=== PATIENT | female | born 1940 | race Caucasian/White ===

== ENCOUNTER 2021-08-25 07:50 | Inpatient (IN) | payer MEDICARE, OTHER ==
--- NOTE | 2021-08-25 09:12 | EDM.PDOC ---
ED HPI GENERAL MEDICAL PROBLEM - General Chief Complaint: Back Pain or Injury Stated Complaint: [facility] Time Seen by Provider: 08/25/21 08:00 Source of Information: Reports: Patient, EMS History Limitations: Reports: Physical Impairment (Patient does have some dementia and difficulty following a train of thought, poor memory) - History of Present Illness INITIAL COMMENTS - FREE TEXT/NARRATIVE: 80-year-old female lives in a assisted living facility has fallen twice in the last few days. She has a bruise on her left lateral hip area from her initial fall, she seemed to be improving but she fell again this morning and has significant lower back pain. This was not present before the fall. No shortness of breath, no head or neck injury, no nausea or vomiting. She had significant discomfort with trying to get up so they called the ambulance, she also complained of pain with transfer onto the gurney. Pain is still present. It is tolerable when she is lying still. Onset: Sudden Duration: Hour(s): (She fell about an hour ago) Location: Reports: Back (Pain was located at the lower thoracic and upper lumbar area of the back) Associated Symptoms: Reports: No Other Symptoms Lower Back Pain Score (Numeric/FACES): 4 - Related Data Allergies Allergy/AdvReac Type Severity Reaction Status Date / Time No Known Allergies Allergy Verified 08/25/21 07:56 Home Meds: Home Meds Multivitamin 1 each PO 08/25/21 [History] Triamterene/Hydrochlorothiazid [Triamterene-HCTZ 37.5-25 MG] 1 each PO 08/25/21 [History] Venlafaxine HCl [Venlafaxine ER] 150 mg PO 08/25/21 [History] Zinc 50 mg PO 08/25/21 [History] buPROPion HCL [Bupropion HCl ER] 300 mg PO 08/25/21 [History] traZODone 50 mg PO BEDTIME 08/25/21 [History] Social & Family History - Tobacco Use Tobacco Use Status *Q: Never Tobacco User ED ROS GENERAL - Review of Systems Review Of Systems: See Below Constitutional: Denies: Fever, Chills Respiratory: Denies: Shortness of Breath Cardiovascular: Denies: Chest Pain GI/Abdominal: Reports: No Symptoms : Reports: No Symptoms Skin: Reports: Bruising (Some bruising present on the left lateral hip from her previous fall) Neurological: Reports: Confusion (Chronic mild confusion, dementia). Denies: Dizziness, Headache Psychiatric: Reports: No Symptoms ED EXAM,LOWER BACK PAIN/INJURY - Physical Exam Exam: See Below Exam Limited By: No Limitations General Appearance: Alert, No Apparent Distress, Other (Fairly comfortable while lying still but significant pain with any type of movement of the trunk of the body or lower extremities) Eye Exam: Bilateral Eye: Normal Inspection Head: Atraumatic Neck: Supple, Non-Tender Respiratory/Chest: No Respiratory Distress, Lungs Clear Cardiovascular: Regular Rate, Rhythm GI/Abdominal: Non-Tender Back Exam: Paraspinal Tenderness, Vertebral Tenderness, Other (Significant palpation tenderness in the mid to lower back, very difficult to isolate focal area of pain) Extremities: Other (Increased back pain with passive internal and external rotation of the right leg, less so with the left leg) Neurological: Alert, No Motor/Sensory Deficits Psychiatric: Normal Affect, Normal Mood Skin Exam: Warm, Dry, Other (Some bruising is present on the left lateral hip, tender to palpation) Course - Vital Signs Last Recorded V/S: Last Vital Signs Temp 96.4 F L 08/25/21 13:10 Pulse 91 08/25/21 13:10 Resp 16 08/25/21 13:10 BP 149/72 H 08/25/21 13:10 Pulse Ox 93 L 08/25/21 13:10 - Orders/Labs/Meds Orders: Active Orders 24 hr Category Date Time Status Sodium Chloride 0.9% [Saline Flush] Med 08/25/21 09:34 Active 10 ml FLUSH ASDIRECTED PRN Saline Lock Insert [OM.PC] Routine Oth 08/25/21 09:34 Ordered Medication Orders Acetaminophen (Acetaminophen 500 Mg Tab) 1,000 mg PO TID LISSY Ibuprofen (Ibuprofen 600 Mg Tab) 600 mg PO Q6H PRN PRN Reason: Pain/Fever Lorazepam (Lorazepam 2 Mg/Ml Sdv) 0.5 mg IVPUSH Q4H PRN PRN Reason: Nausea/Vomiting Magnesium Hydroxide (Magnesium Hydroxide 400 Mg/5 Ml Susp 30 Ml Cup) 30 ml PO Q12H PRN PRN Reason: Constipation Melatonin (Melatonin 3 Mg Tab) 9 mg PO BEDTIME LISSY Ondansetron HCl (Ondansetron 4 Mg/2 Ml Sdv) 4 mg IV Q6H PRN PRN Reason: Nausea/Vomiting Ondansetron HCl (Ondansetron 4 Mg Tab.Dis) 4 mg PO Q6H PRN PRN Reason: Nausea able to take PO Senna/Docusate Sodium (Docusate Sodium/Sennosides 50-8.6 Mg Tab) 1 tab PO BID PRN PRN Reason: Constipation Sodium Chloride (Sodium Chloride 0.9% 10 Ml Syringe) 10 ml FLUSH ASDIRECTED PRN PRN Reason: Keep Vein Open Last Admin: 08/25/21 11:04 Dose: 10 ml Documented by: Admin: 08/25/21 09:48 Dose: 10 ml Documented by: MAULIK Tramadol HCl (Tramadol 50 Mg Tab) 50 mg PO Q6H PRN PRN Reason: Pain Trolamine Salicylate (Trolamine Salicylate/Aloe Vera 10% Crm 85 Gm Tube) 0 gm TOP Q2H PRN PRN Reason: lower back pain Labs: Laboratory Tests 08/25/21 08/25/21 08/25/21 Range/Units 10:30 10:30 10:46 WBC 9.9 (4.5-11.0) K/uL RBC 4.19 (3.30-5.50) M/uL Hgb 13.1 (12.0-15.0) g/dL Hct 39.5 (36.0-48.0) % MCV 94 (80-98) fL MCH 31 (27-31) pg MCHC 33 (32-36) % Plt Count 189 (150-400) K/uL Neut % (Auto) 87.1 H (36-66) % Lymph % (Auto) 7.3 L (24-44) % Warren % (Auto) 5.3 (2-6) % Eos % (Auto) 0.2 L (2-4) % Baso % (Auto) 0.1 (0-1) % Sodium 137 L (140-148) mmol/L Potassium 3.7 (3.6-5.2) mmol/L Chloride 100 (100-108) mmol/L Carbon Dioxide 31 (21-32) mmol/L Anion Gap 9.7 (5.0-14.0) mmol/L BUN 28 H (7-18) mg/dL Creatinine 1.1 H (0.6-1.0) mg/dL Est Cr Clr Drug Dosing 31.81 mL/min Estimated GFR (MDRD) 48 L (>60) Glucose 168 H (74-106) mg/dL Calcium 9.2 (8.5-10.1) mg/dL Total Bilirubin 0.5 (0.2-1.0) mg/dL AST 23 (15-37) U/L ALT 29 (12-78) U/L Alkaline Phosphatase 85 (46-116) U/L Total Protein 6.3 L (6.4-8.2) g/dL Albumin 3.3 L (3.4-5.0) g/dL Globulin 3.0 (2.3-3.5) g/dL Albumin/Globulin Ratio 1.1 L (1.2-2.2) Urine Color (YELLOW) Urine Appearance (CLEAR) Urine pH (5.0-8.0) Ur Specific [place] (1.008-1.030) Urine Protein (NEGATIVE) mg/dL Urine Glucose (UA) (NEGATIVE) mg/dL Urine Ketones (NEGATIVE) mg/dL Urine Occult Blood (NEGATIVE) Urine Nitrite (NEGATIVE) Urine Bilirubin (NEGATIVE) Urine Urobilinogen (0.2-1.0) EU/dL Ur Leukocyte Esterase (NEGATIVE) Urine RBC (0-5) Urine WBC (0-5) Ur Epithelial Cells Amorphous Sediment Urine Bacteria Urine Mucus Influenza Type A RNA Negative (NEGATIVE) RSV RNA (INAAT) Negative (NEGATIVE) Influenza Type B RNA Negative (NEGATIVE) SARS-CoV-2 RNA (ABDIRIZAK) Negative (NEGATIVE) 08/25/21 Range/Units 11:13 WBC (4.5-11.0) K/uL RBC (3.30-5.50) M/uL Hgb (12.0-15.0) g/dL Hct (36.0-48.0) % MCV (80-98) fL MCH (27-31) pg MCHC (32-36) % Plt Count (150-400) K/uL Neut % (Auto) (36-66) % Lymph % (Auto) (24-44) % Warren % (Auto) (2-6) % Eos % (Auto) (2-4) % Baso % (Auto) (0-1) % Sodium (140-148) mmol/L Potassium (3.6-5.2) mmol/L Chloride (100-108) mmol/L Carbon Dioxide (21-32) mmol/L Anion Gap (5.0-14.0) mmol/L BUN (7-18) mg/dL Creatinine (0.6-1.0) mg/dL Est Cr Clr Drug Dosing mL/min Estimated GFR (MDRD) (>60) Glucose (74-106) mg/dL Calcium (8.5-10.1) mg/dL Total Bilirubin (0.2-1.0) mg/dL AST (15-37) U/L ALT (12-78) U/L Alkaline Phosphatase (46-116) U/L Total Protein (6.4-8.2) g/dL Albumin (3.4-5.0) g/dL Globulin (2.3-3.5) g/dL Albumin/Globulin Ratio (1.2-2.2) Urine Color Yellow (YELLOW) Urine Appearance Clear (CLEAR) Urine pH 6.0 (5.0-8.0) Ur Specific [place] 1.025 (1.008-1.030) Urine Protein Negative (NEGATIVE) mg/dL Urine Glucose (UA) Negative (NEGATIVE) mg/dL Urine Ketones Negative (NEGATIVE) mg/dL Urine Occult Blood Negative (NEGATIVE) Urine Nitrite Negative (NEGATIVE) Urine Bilirubin Negative (NEGATIVE) Urine Urobilinogen 0.2 (0.2-1.0) EU/dL Ur Leukocyte Esterase Negative (NEGATIVE) Urine RBC 0-5 (0-5) Urine WBC 0-5 (0-5) Ur Epithelial Cells Few Amorphous Sediment Not seen Urine Bacteria Not seen Urine Mucus Not seen Influenza Type A RNA (NEGATIVE) RSV RNA (INAAT) (NEGATIVE) Influenza Type B RNA (NEGATIVE) SARS-CoV-2 RNA (ABDIRIZAK) (NEGATIVE) Meds: Medications Generic Name Dose Route Start Last Admin Trade Name Freq PRN Reason Stop Dose Admin Acetaminophen 1,000 mg 08/25/21 14:00 Acetaminophen 500 Mg Tab PO TID LISSY Ibuprofen 600 mg 08/25/21 12:57 Ibuprofen 600 Mg Tab PO Q6H PRN Pain/Fever Lorazepam 0.5 mg 08/25/21 12:57 Lorazepam 2 Mg/Ml Sdv IVPUSH Q4H PRN Nausea/Vomiting Magnesium Hydroxide 30 ml 08/25/21 12:57 Magnesium Hydroxide 400 Mg/5 Ml Susp 30 Ml Cup PO Q12H PRN Constipation Melatonin 9 mg 08/25/21 21:00 Melatonin 3 Mg Tab PO BEDTIME LISSY Ondansetron HCl 4 mg 08/25/21 12:57 Ondansetron 4 Mg/2 Ml Sdv IV Q6H PRN Nausea/Vomiting Ondansetron HCl 4 mg 08/25/21 12:57 Ondansetron 4 Mg Tab.Dis PO Q6H PRN Nausea able to take PO Senna/Docusate Sodium 1 tab 08/25/21 12:57 Docusate Sodium/Sennosides 50-8.6 Mg Tab PO BID PRN Constipation Sodium Chloride 10 ml 08/25/21 09:34 08/25/21 11:04 Sodium Chloride 0.9% 10 Ml Syringe FLUSH 10 ml ASDIRECTED PRN Administration Keep Vein Open Tramadol HCl 50 mg 08/25/21 12:57 Tramadol 50 Mg Tab PO Q6H PRN Pain Trolamine Salicylate 0 gm 08/25/21 12:57 Trolamine Salicylate/Aloe Vera 10% Crm 85 Gm Tube TOP Q2H PRN lower back pain Discontinued Medications Generic Name Dose Route Start Last Admin Trade Name Freq PRN Reason Stop Dose Admin Fentanyl 25 mcg 08/25/21 09:34 08/25/21 09:47 Fentanyl 100 Mcg/2 Ml Sdv IVPUSH 08/25/21 09:35 25 mcg ONETIME ONE Administration Fentanyl 50 mcg 08/25/21 10:49 08/25/21 11:04 Fentanyl 100 Mcg/2 Ml Sdv IVPUSH 08/25/21 10:50 50 mcg ONETIME ONE Administration - Re-Assessments/Exams Free Text/Narrative Re-Assessment/Exam: 08/25/21 09:12 Thoracic and lumbar spine CT scan was obtained as this patient presents with a possible compression fracture injury of the spine. 08/25/21 10:24 CT scan does confirm a comminuted compression fracture in the upper lumbar spine. She is neurologically stable, I did discuss her condition with the hospitalist service and they agreed to see her for admission for pain control and subsequent disposition. CBC, BMP and UA were obtained as well as a Covid 4 Plex. Labs are pending. 08/25/21 13:45 Labs were generally reassuring, she did not have a urinary tract infection nor was Covid positive. She was admitted to the hospitalist service for pain control and ultimate disposition for acute compression fracture and intractable debilitating pain. Departure - Departure Time of Disposition: 13:14 Disposition: Admitted As Inpatient 68 Clinical Impression: Compression fracture of L1 lumbar vertebra Qualifiers: Encounter type: initial encounter Qualified Code(s): S32.010A - Wedge compression fracture of first lumbar vertebra, initial encounter for closed fracture - Discharge Information Sepsis Event Note (ED) - Evaluation Sepsis Screening Result: No Definite Risk - Focused Exam Vital Signs: Vital Signs Temp Pulse Resp BP Pulse Ox 08/25/21 07:52 97.9 F 72 16 152/67 H 94 L - My Orders Last 24 Hours: My Active Orders 08/25/21 09:34 Sodium Chloride 0.9% [Saline Flush] 10 ml FLUSH ASDIRECTED PRN Saline Lock Insert [OM.PC] Routine - Assessment/Plan Last 24 Hours: My Active Orders 08/25/21 09:34 Sodium Chloride 0.9% [Saline Flush] 10 ml FLUSH ASDIRECTED PRN Saline Lock Insert [OM.PC] Routine
[2021-08-25] MEDS ORDERED: fentaNYL 100 MCG/2 ML SDV IVPUSH ONE ×2 (09:34→10:49)
[2021-08-25] MEDS: Sodium Chloride 0.9% 10 ML Syringe FLUSH PRN ×2 (09:48→11:04)
--- NOTE | 2021-08-25 10:43 | CT ---
Lumbar Spine wo Cont CLINICAL HISTORY: Pain, fall COMPARISON: None TECHNIQUE: Multiple contiguous axial sections were obtained of the lumbar spine without the IV infusion of contrast material This was followed by sagittal and coronal MPRs. Auto dosage reduction and iterative reconstruction techniques employed. FINDINGS: Sagittal images show moderate superior endplate compression deformity of L1 which is likely acute or subacute. There is some posterior protrusion of the upper portion of the posterior vertebral body wall encroaching on the thecal sac, mild degree. There is no significant central canal stenosis. There is a mild to L3 superior endplate compression deformity of unknown chronology. There is diffuse spondylosis. There is grade 1 anterolisthesis of L4 on L5. Axial images show some disc osteophyte formation at L1-2. There is some facet osteoarthropathy. There is mild neural foraminal encroachment on the right. There is concentric disc osteophyte formation at L2-3. There is posterior element hypertrophy. This causes moderate central canal stenosis. There is also encroachment on the lateral recesses. There is moderate concentric disc osteophyte formation at L3-4 with moderate posterior element hypertrophy. This causes moderate to severe central canal stenosis. There is calcification and/or ossification extending above the disc plane on the left which may represent an old disc extrusion. There is moderate encroachment on the lateral recesses and the left neural foramina. There is subluxation and disc osteophyte formation at L4-5 with significant posterior element osteoarthropathy. This causes very severe central canal stenosis and encroachment on the lateral recesses as well as both neural foramina. There is central disc protrusion at L5-S1 IMPRESSION: Acute or subacute moderate superior endplate compression fracture with some encroachment on the anterior spinal canal. There is no significant spinal stenosis Moderate to severe diffuse degenerative disc disease and facet osteoarthropathy Multiple levels of central canal stenosis, lateral recess and neural foraminal encroachment described above. This is most severe at L4-5 when combined with a grade 1 anterolisthesis
--- NOTE | 2021-08-25 10:48 | CT ---
Thoracic Spine wo Cont CLINICAL HISTORY: Fall, pain TECHNIQUE: 2 x 2 mm axial sections were taken through the thoracic spine without contrast. MPR images were also obtained and reviewed. Auto dosage reduction and iterative reconstruction techniques employed. FINDINGS: Thoracic vertebral body heights are maintained. There is diffuse degenerative disc disease with spondylosis. Alignment is maintained IMPRESSION: Diffuse degenerative disc changes with accompanied spondylosis No significant encroachment on the neural elements
[2021-08-25 11:23] LABS: CORONAVIRUS COVID-19 NAA NEGATIVE (NEGATIVE)
--- NOTE | 2021-08-25 12:31 | PCM.HP.2 ---
H&P History of Present Illness - General Date of Service: 08/25/21 Admit Problem/Dx: Admission Diagnosis/Problem Admission Diagnosis/Problem Compression fracture of L1 lumbar vertebra Source of Information: Patient, Family, Provider History Limitations: Reports: Altered Mental Status (dementia) - History of Present Illness Initial Comments - Free Text/Narative: CC: I fell HPI: Renetta presents to the emergency room today with lower back pain. She does have some dementia so her daughter did provide some additional history. She has fallen twice in the past couple of days. There were no apparent injuries to the fall yesterday. After the fall today she had difficulty getting up and was complaining of back pain so she was brought in for evaluation. She is currently complaining of moderate achy pain in her the middle of her lower back. The pain does radiate to the left on the right slightly but does not radiate down either leg. Any sort of movement makes the pain worse. She did receive a couple of doses of fentanyl which has helped the pain some. Lying still has been the most helpful. She reports that she has felt well recently. She has not had any feve rs, cough, sore throat or shortness of breath. No abdominal pain or nausea. No change in bowel or bladder habits. She has had some mild intermittent incontinence. We did question her about recent difficulties with lower back pain or radicular pain and she has not had any of these. She does report that her balance has been worsening and sometimes feels like her feet are numb. She has not had bowel incontinence. Work-up in the emergency room revealed a compression fracture at L1 which was r elatively mild. The CT scan did also show severe spinal stenosis at multiple levels in the lumbar spine. The patient does not able to get up and ambulate at this time so she will be admitted for pain control, therapy and potentially additional management of her severe spinal stenosis along with the compression fracture. Lower Back Pain Score (Numeric/FACES): 4 - Related Data Allergies/Adverse Reactions: Allergies Allergy/AdvReac Type Severity Reaction Status Date / Time No Known Allergies Allergy Verified 08/25/21 07:56 Home Medications: Home Meds Triamterene/Hydrochlorothiazid [Triamterene-HCTZ 37.5-25 MG] 1 each PO DAILY 08/25/21 [History] Venlafaxine HCl [Venlafaxine ER] 150 mg PO DAILY 08/25/21 [History] buPROPion HCL [Bupropion HCl ER] 300 mg PO DAILY 08/25/21 [History] traZODone 50 mg PO BEDTIME 08/25/21 [History] Past Medical History Cardiovascular History: Reports: Hypertension Musculoskeletal History: Reports: Osteoarthritis Psychiatric History: Reports: Dementia, Depression Social & Family History - Family History Musculoskeletal: Reports: Osteoarthritis (sister) Neurological: Reports: Alzheimers Disease (grandmother) - Tobacco Use Tobacco Use Status *Q: Never Tobacco User - Alcohol Use Alcohol Use History: No Alcohol Use in Last Twelve Months: No - Recreational Drug Use Recreational Drug Use: No Drug Use in Last 12 Months: No H&P Review of Systems - Review of Systems: Review Of Systems: See Below Free Text/Narrative: A complete 12 point review of systems was obtained. Pertinent positives and negatives are noted in the history of present illness. All other systems were reviewed and were negative except as noted. Exam - Exam Exam: See Below - Vital Signs Vital Signs: Last Vital Signs Temp 36.6 C 08/25/21 07:52 Pulse 72 08/25/21 07:52 Resp 16 08/25/21 07:52 BP 152/67 H 08/25/21 07:52 Pulse Ox 94 L 08/25/21 07:52 Weight: 79.379 kg - Exam Quality Assessment: No: Supplemental Oxygen General: Alert, Cooperative. No: Mild Distress HEENT: Conjunctiva Clear, Mucosa Moist & Sylvarena. No: Scleral Icterus Neck: Supple, Trachea Midline Lungs: Clear to Auscultation, Normal Respiratory Effort Cardiovascular: Regular Rate, Regular Rhythm GI/Abdominal Exam: Normal Bowel Sounds, Soft, Non-Tender, No Distention Back Exam: Paraspinal Tenderness. No: Full Range of Motion Extremities: No Pedal Edema. No: Increased Warmth Peripheral Pulses: 2+: Dorsalis Pedis (L), Dorsalis Pedis (R) Skin: Warm, Dry Neuro Extensive - Mental Status: Alert, Nl Response to Commands. No: Oriented x3 Neuro Extensive - Motor, Sensory, Reflexes: Tremor (mild both hands). No: Dysarthria, Abnormal Motor Psychiatric: Alert, Normal Affect. No: Agitated - Patient Data Lab Results Last 24 hrs: Laboratory Results - last 24 hr 08/25/21 08/25/21 08/25/21 Range/Units 10:30 10:30 10:46 WBC 9.9 (4.5-11.0) K/uL RBC 4.19 (3.30-5.50) M/uL Hgb 13.1 (12.0-15.0) g/dL Hct 39.5 (36.0-48.0) % MCV 94 (80-98) fL MCH 31 (27-31) pg MCHC 33 (32-36) % Plt Count 189 (150-400) K/uL Neut % (Auto) 87.1 H (36-66) % Lymph % (Auto) 7.3 L (24-44) % [place] % (Auto) 5.3 (2-6) % Eos % (Auto) 0.2 L (2-4) % Baso % (Auto) 0.1 (0-1) % Sodium 137 L (140-148) mmol/L Potassium 3.7 (3.6-5.2) mmol/L Chloride 100 (100-108) mmol/L Carbon Dioxide 31 (21-32) mmol/L Anion Gap 9.7 (5.0-14.0) mmol/L BUN 28 H (7-18) mg/dL Creatinine 1.1 H (0.6-1.0) mg/dL Est Cr Clr Drug Dosing 31.81 mL/min Estimated GFR (MDRD) 48 L (>60) Glucose 168 H (74-106) mg/dL Calcium 9.2 (8.5-10.1) mg/dL Total Bilirubin 0.5 (0.2-1.0) mg/dL AST 23 (15-37) U/L ALT 29 (12-78) U/L Alkaline Phosphatase 85 (46-116) U/L Total Protein 6.3 L (6.4-8.2) g/dL Albumin 3.3 L (3.4-5.0) g/dL Globulin 3.0 (2.3-3.5) g/dL Albumin/Globulin Ratio 1.1 L (1.2-2.2) Urine Color (YELLOW) Urine Appearance (CLEAR) Urine pH (5.0-8.0) Ur Specific [place] (1.008-1.030) Urine Protein (NEGATIVE) mg/dL Urine Glucose (UA) (NEGATIVE) mg/dL Urine Ketones (NEGATIVE) mg/dL Urine Occult Blood (NEGATIVE) Urine Nitrite (NEGATIVE) Urine Bilirubin (NEGATIVE) Urine Urobilinogen (0.2-1.0) EU/dL Ur Leukocyte Esterase (NEGATIVE) Urine RBC (0-5) Urine WBC (0-5) Ur Epithelial Cells Amorphous Sediment Urine Bacteria Urine Mucus Influenza Type A RNA Negative (NEGATIVE) RSV RNA (INAAT) Negative (NEGATIVE) Influenza Type B RNA Negative (NEGATIVE) SARS-CoV-2 RNA (ABDIRIZAK) Negative (NEGATIVE) 08/25/21 Range/Units 11:13 WBC (4.5-11.0) K/uL RBC (3.30-5.50) M/uL Hgb (12.0-15.0) g/dL Hct (36.0-48.0) % MCV (80-98) fL MCH (27-31) pg MCHC (32-36) % Plt Count (150-400) K/uL Neut % (Auto) (36-66) % Lymph % (Auto) (24-44) % Marathon % (Auto) (2-6) % Eos % (Auto) (2-4) % Baso % (Auto) (0-1) % Sodium (140-148) mmol/L Potassium (3.6-5.2) mmol/L Chloride (100-108) mmol/L Carbon Dioxide (21-32) mmol/L Anion Gap (5.0-14.0) mmol/L BUN (7-18) mg/dL Creatinine (0.6-1.0) mg/dL Est Cr Clr Drug Dosing mL/min Estimated GFR (MDRD) (>60) Glucose (74-106) mg/dL Calcium (8.5-10.1) mg/dL Total Bilirubin (0.2-1.0) mg/dL AST (15-37) U/L ALT (12-78) U/L Alkaline Phosphatase (46-116) U/L Total Protein (6.4-8.2) g/dL Albumin (3.4-5.0) g/dL Globulin (2.3-3.5) g/dL Albumin/Globulin Ratio (1.2-2.2) Urine Color Yellow (YELLOW) Urine Appearance Clear (CLEAR) Urine pH 6.0 (5.0-8.0) Ur Specific [place] 1.025 (1.008-1.030) Urine Protein Negative (NEGATIVE) mg/dL Urine Glucose (UA) Negative (NEGATIVE) mg/dL Urine Ketones Negative (NEGATIVE) mg/dL Urine Occult Blood Negative (NEGATIVE) Urine Nitrite Negative (NEGATIVE) Urine Bilirubin Negative (NEGATIVE) Urine Urobilinogen 0.2 (0.2-1.0) EU/dL Ur Leukocyte Esterase Negative (NEGATIVE) Urine RBC 0-5 (0-5) Urine WBC 0-5 (0-5) Ur Epithelial Cells Few Amorphous Sediment Not seen Urine Bacteria Not seen Urine Mucus Not seen Influenza Type A RNA (NEGATIVE) RSV RNA (INAAT) (NEGATIVE) Influenza Type B RNA (NEGATIVE) SARS-CoV-2 RNA (ABDIRIZAK) (NEGATIVE) Result Diagrams: 08/25/21 10:30 08/25/21 10:30 Imaging Impressions Last 24 hrs: All images below personally reviewed - Thoracic spine CT -no significant changes noted to the thoracic spine. No compression deformities noted. Lumbar spine CT -there was a mild probable acute fracture of the superior endplate of L1 as well as a probable subacute or chronic mild compression fracture at L3. There is severe spinal stenosis at multiple levels of the lumbar spine between L3/L4 as well as L4/L5 and 5/s1. Sepsis Event Note - Evaluation Sepsis Screening Result: No Definite Risk - Focused Exam Vital Signs: Vital Signs Temp Pulse Resp BP Pulse Ox 08/25/21 07:52 36.6 C 72 16 152/67 H 94 L *Q Meaningful Use (ADM) - VTE Risk Assess *Q Each Risk Factor Represents 1 Point: Obesity ( BMI > 25 kg/m2) Total Score 1 Point Risk Factors: 1 Each Risk Factor Represents 2 Points: None Total Score 2 Point Risk Factors: 0 Each Risk Factor Represents 3 Points: Age 75 Years or Greater Total Score 3 Point Risk Factors: 3 Each Risk Factor Represents 5 Points: None Total Score 5 Point Risk Factors: 0 Venous Thromboembolism Risk Factor Score *Q: 4 - Problem List (1) Compression fracture of L1 lumbar vertebra SNOMED Code(s): 362200936, 163386307, [id number] ICD Code: S32.010A - WEDGE COMPRESSION FRACTURE OF FIRST LUMBAR VERTEBRA, INIT Status: Acute Current Visit: Yes Qualifiers: Encounter type: initial encounter Qualified Code(s): S32.010A - Wedge compression fracture of first lumbar vertebra, initial encounter for closed fracture (2) Spinal stenosis of lumbar region SNOMED Code(s): 17875480 ICD Code: M48.061 - SPINAL STENOSIS, LUMBAR REGION WITHOUT NEUROGENIC JESSIE Status: Chronic Current Visit: Yes Qualifiers: Neurogenic claudication status: without neurogenic claudication Qualified Code(s): M48.061 - Spinal stenosis, lumbar region without neurogenic claudicati on (3) Alzheimer's dementia without behavioral disturbance SNOMED Code(s): 74167549 ICD Code: G30.9 - ALZHEIMER'S DISEASE, UNSPECIFIED; F02.80 - DEMENTIA IN OTH DISEASES CLASSD ELSWHR W/O BEHAVRL DISTURB Status: Chronic Current Visit: Yes Qualifiers: Alzheimer's disease onset: late-onset Qualified Code(s): G30.1 - A lzheimer's disease with late onset; F02.80 - Dementia in other diseases classified elsewhere without behavioral disturbance Problem List Initiated/Reviewed/Updated: Yes Orders Last 24hrs: Active Orders 24 hr Category Date Time Status Patient Status Manage Transfer [TRANSFER] Routine ADT 08/25/21 12:21 Ordered Sodium Chloride 0.9% [Saline Flush] Med 08/25/21 09:34 Active 10 ml FLUSH ASDIRECTED PRN Isolation [COMM] Stat Oth 08/25/21 10:23 Ordered Saline Lock Insert [OM.PC] Routine Oth 08/25/21 09:34 Ordered Resuscitation Status Routine Resus Stat 08/25/21 12:22 Ordered Medication Orders Sodium Chloride (Sodium Chloride 0.9% 10 Ml Syringe) 10 ml FLUSH ASDIRECTED PRN PRN Reason: Keep Vein Open Last Admin: 08/25/21 11:04 Dose: 10 ml Documented by: Admin: 08/25/21 09:48 Dose: 10 ml Documented by: MAULIK Assessment/Plan Comment:: ASSESSMENT AND PLAN - L1 compression fracture-relatively mild based on imaging but patient is having a fair amount of pain and some difficulty with ambulation so she is not safe for outpatient management at this time. Hopefully with some pain control and physical therapy she will improve her ambulation. She may need subacute rehab given her severe spinal stenosis as discussed below. -Scheduled acetaminophen -As needed ibuprofen -Tramadol for more intense pain (daughter would like to avoid this medication and especially narcotics as much as possible) -Lidocaine patch -Physical therapy Severe spinal stenosis-noted at multiple levels on the CT scan. Patient has not had any back pain that she is able to report. She has noted some difficulty with sensation and balance. She is not a good surgical candidate at this time with her dementia and impaired functional status. Daughter is not sure if she would even go through surgery at this point since she is not having a lot of pain. -Physical therapy -Consider outpatient follow-up depending on how she does Alzheimer's dementia-moderate impairment at this point but no behavior issues. They did try her on donepezil but she did not tolerate this medication. Melaton in at bedtime - Essential hypertension-plan to continue home medications. Maintenance issues - -DVT prophylaxis-mechanical -GI prophylaxis-not indicated -Nutrition-regular -Tracy catheter-not indicated CODE STATUS -DNR/DNI Admission justification -this patient will be admitted for inpatient services and is medically appropriate meeting medical necessity for inpatient admission as outlined in my documentation. I reasonably expect the patient will require inpatient services that span a period time over 2 midnights. I reasonably expect this patient to be discharged or transferred within 96 hours after admission to the [facility]. Disposition -I anticipate discharge home after the hospital stay Primary care physician -Dr. Christiane Dyson M.D. - Mortality Measure Prognosis:: Good
[2021-08-25] MEDS ORDERED: LORazepam 2 MG/ML SDV IVPUSH PRN (12:57)
[2021-08-25] MEDS ORDERED: Ondansetron 4 MG/2 ML SDV IV PRN (12:57)
[2021-08-25] MEDS: Acetaminophen 500 MG Tab PO SCH ×2 (14:20→20:33)
[2021-08-25] MEDS: traMADol 50 MG Tab PO PRN (14:34)
[2021-08-25] MEDS: Lidocaine 5% 700 MG Patch TRDERM SCH (15:25)
[2021-08-25] MEDS: Ibuprofen 600 MG Tab PO PRN (20:31)
[2021-08-25] MEDS: traZODone 50 MG Tab PO SCH (20:32)
[2021-08-25] MEDS: Melatonin 3 MG Tab PO SCH (20:32)
[2021-08-26] MEDS: Ibuprofen 600 MG Tab PO PRN ×3 (03:23→17:18)
[2021-08-26] MEDS: Venlafaxine 75 MG Cap.ER PO SCH (08:41)
[2021-08-26] MEDS: buPROPion 150 MG Tab.ER PO SCH (08:41)
[2021-08-26] MEDS: Acetaminophen 500 MG Tab PO SCH ×3 (08:41→20:17)
[2021-08-26] MEDS: Hydrochlorothiazide/Triamterene 25-37.5 Tab PO SCH (08:41)
--- NOTE | 2021-08-26 10:18 | PCM.PN ---
- General Info Date of Service: 08/26/21 Subjective Update: There were no acute events overnight. The patient continues to report moderate pain which is similar to yesterday. Pain continues to be located in her lower back near the midline. She was able to get some sleep last night. No abdominal pain or nausea. No confusion. She did well with occupational therapy. She had not been seen by physical therapy as of the time of our discussion today. Functional Status: Reports: Pain Controlled, Tolerating Diet - Review of Systems General: Reports: Weakness Musculoskeletal: Reports: Back Pain - Patient Data Vitals - Most Recent: Last Vital Signs Temp 35.7 C L 08/26/21 07:00 Pulse 76 08/26/21 07:00 Resp 18 08/26/21 07:00 BP 144/74 H 08/26/21 07:00 Pulse Ox 94 L 08/26/21 07:00 Weight - Most Recent: 78.018 kg Lab Results Last 24 Hours: Laboratory Results - last 24 hr 08/25/21 08/25/21 08/25/21 Range/Units 10:30 10:30 10:46 WBC 9.9 (4.5-11.0) K/uL RBC 4.19 (3.30-5.50) M/uL Hgb 13.1 (12.0-15.0) g/dL Hct 39.5 (36.0-48.0) % MCV 94 (80-98) fL MCH 31 (27-31) pg MCHC 33 (32-36) % Plt Count 189 (150-400) K/uL Neut % (Auto) 87.1 H (36-66) % Lymph % (Auto) 7.3 L (24-44) % [place] % (Auto) 5.3 (2-6) % Eos % (Auto) 0.2 L (2-4) % Baso % (Auto) 0.1 (0-1) % Sodium 137 L (140-148) mmol/L Potassium 3.7 (3.6-5.2) mmol/L Chloride 100 (100-108) mmol/L Carbon Dioxide 31 (21-32) mmol/L Anion Gap 9.7 (5.0-14.0) mmol/L BUN 28 H (7-18) mg/dL Creatinine 1.1 H (0.6-1.0) mg/dL Est Cr Clr Drug Dosing 31.81 mL/min Estimated GFR (MDRD) 48 L (>60) Glucose 168 H (74-106) mg/dL Calcium 9.2 (8.5-10.1) mg/dL Total Bilirubin 0.5 (0.2-1.0) mg/dL AST 23 (15-37) U/L ALT 29 (12-78) U/L Alkaline Phosphatase 85 (46-116) U/L Total Protein 6.3 L (6.4-8.2) g/dL Albumin 3.3 L (3.4-5.0) g/dL Globulin 3.0 (2.3-3.5) g/dL Albumin/Globulin Ratio 1.1 L (1.2-2.2) Urine Color (YELLOW) Urine Appearance (CLEAR) Urine pH (5.0-8.0) Ur Specific [place] (1.008-1.030) Urine Protein (NEGATIVE) mg/dL Urine Glucose (UA) (NEGATIVE) mg/dL Urine Ketones (NEGATIVE) mg/dL Urine Occult Blood (NEGATIVE) Urine Nitrite (NEGATIVE) Urine Bilirubin (NEGATIVE) Urine Urobilinogen (0.2-1.0) EU/dL Ur Leukocyte Esterase (NEGATIVE) Urine RBC (0-5) Urine WBC (0-5) Ur Epithelial Cells Amorphous Sediment Urine Bacteria Urine Mucus Influenza Type A RNA Negative (NEGATIVE) RSV RNA (INAAT) Negative (NEGATIVE) Influenza Type B RNA Negative (NEGATIVE) SARS-CoV-2 RNA (ABDRIIZAK) Negative (NEGATIVE) 08/25/21 Range/Units 11:13 WBC (4.5-11.0) K/uL RBC (3.30-5.50) M/uL Hgb (12.0-15.0) g/dL Hct (36.0-48.0) % MCV (80-98) fL MCH (27-31) pg MCHC (32-36) % Plt Count (150-400) K/uL Neut % (Auto) (36-66) % Lymph % (Auto) (24-44) % [place] % (Auto) (2-6) % Eos % (Auto) (2-4) % Baso % (Auto) (0-1) % Sodium (140-148) mmol/L Potassium (3.6-5.2) mmol/L Chloride (100-108) mmol/L Carbon Dioxide (21-32) mmol/L Anion Gap (5.0-14.0) mmol/L BUN (7-18) mg/dL Creatinine (0.6-1.0) mg/dL Est Cr Clr Drug Dosing mL/min Estimated GFR (MDRD) (>60) Glucose (74-106) mg/dL Calcium (8.5-10.1) mg/dL Total Bilirubin (0.2-1.0) mg/dL AST (15-37) U/L ALT (12-78) U/L Alkaline Phosphatase (46-116) U/L Total Protein (6.4-8.2) g/dL Albumin (3.4-5.0) g/dL Globulin (2.3-3.5) g/dL Albumin/Globulin Ratio (1.2-2.2) Urine Color Yellow (YELLOW) Urine Appearance Clear (CLEAR) Urine pH 6.0 (5.0-8.0) Ur Specific [place] 1.025 (1.008-1.030) Urine Protein Negative (NEGATIVE) mg/dL Urine Glucose (UA) Negative (NEGATIVE) mg/dL Urine Ketones Negative (NEGATIVE) mg/dL Urine Occult Blood Negative (NEGATIVE) Urine Nitrite Negative (NEGATIVE) Urine Bilirubin Negative (NEGATIVE) Urine Urobilinogen 0.2 (0.2-1.0) EU/dL Ur Leukocyte Esterase Negative (NEGATIVE) Urine RBC 0-5 (0-5) Urine WBC 0-5 (0-5) Ur Epithelial Cells Few Amorphous Sediment Not seen Urine Bacteria Not seen Urine Mucus Not seen Influenza Type A RNA (NEGATIVE) RSV RNA (INAAT) (NEGATIVE) Influenza Type B RNA (NEGATIVE) SARS-CoV-2 RNA (ABDIRIZAK) (NEGATIVE) Med Orders - Current: Current Medications Acetaminophen (Acetaminophen 500 Mg Tab) 1,000 mg PO TID [facility] Last Admin: 08/26/21 08:41 Dose: 1,000 mg Documented by: Bupropion HCl (Bupropion 150 Mg Tab.Er) 300 mg PO DAILY [facility] Last Admin: 08/26/21 08:41 Dose: 300 mg Documented by: Ibuprofen (Ibuprofen 600 Mg Tab) 600 mg PO Q6H PRN PRN Reason: Pain/Fever Last Admin: 08/26/21 03:23 Dose: 600 mg Documented by: Lidocaine (Lidocaine 5% 700 Mg Patch) 700 mg TRDERM DAILY@1800 [facility] Last Admin: 08/25/21 15:25 Dose: 700 mg Documented by: Lorazepam (Lorazepam 2 Mg/Ml Sdv) 0.5 mg IVPUSH Q4H PRN PRN Reason: Nausea/Vomiting Magnesium Hydroxide (Magnesium Hydroxide 400 Mg/5 Ml Susp 30 Ml Cup) 30 ml PO Q12H PRN PRN Reason: Constipation Melatonin (Melatonin 3 Mg Tab) 9 mg PO BEDTIME [facility] Last Admin: 08/25/21 20:32 Dose: 9 mg Documented by: Miscellaneous Information (Remove Lidocaine Patch) 1 ea TRDERM Q24H [facility] Last Admin: 08/26/21 06:27 Dose: Not Given Documented by: Ondansetron HCl (Ondansetron 4 Mg/2 Ml Sdv) 4 mg IV Q6H PRN PRN Reason: Nausea/Vomiting Ondansetron HCl (Ondansetron 4 Mg Tab.Dis) 4 mg PO Q6H PRN PRN Reason: Nausea able to take PO Senna/Docusate Sodium (Docusate Sodium/Sennosides 50-8.6 Mg Tab) 1 tab PO BID PRN PRN Reason: Constipation Sodium Chloride (Sodium Chloride 0.9% 10 Ml Syringe) 10 ml FLUSH ASDIRECTED PRN PRN Reason: Keep Vein Open Last Admin: 08/25/21 11:04 Dose: 10 ml Documented by: Tramadol HCl (Tramadol 50 Mg Tab) 50 mg PO Q6H PRN PRN Reason: Pain Last Admin: 08/25/21 14:34 Dose: 50 mg Documented by: Trazodone HCl (Trazodone 50 Mg Tab) 50 mg PO BEDTIME [facility] Last Admin: 08/25/21 20:32 Dose: 50 mg Documented by: Triamterene/Hydrochlorothiazide (Hydrochlorothiazide/Triamterene 25-37.5 Tab) 1 each PO DAILY [facility] [place] Last Admin: 08/26/21 08:41 Dose: 1 each Documented by: Trolamine Salicylate (Trolamine Salicylate/Aloe Vera 10% Crm 85 Gm Tube) 0 gm TOP Q2H PRN PRN Reason: lower back pain Venlafaxine HCl (Venlafaxine 75 Mg Cap.Er) 150 mg PO DAILY [facility] Last Admin: 08/26/21 08:41 Dose: 150 mg Documented by: Discontinued Medications Fentanyl (Fentanyl 100 Mcg/2 Ml Sdv) 25 mcg IVPUSH ONETIME ONE Stop: 08/25/21 09:35 Last Admin: 08/25/21 09:47 Dose: 25 mcg Documented by: Fentanyl (Fentanyl 100 Mcg/2 Ml Sdv) 50 mcg IVPUSH ONETIME ONE Stop: 08/25/21 10:50 Last Admin: 08/25/21 11:04 Dose: 50 mcg Documented by: - Exam General: Alert, Cooperative, No Acute Distress. No: Oriented Lungs: Normal Respiratory Effort GI/Abdominal Exam: Soft, No Distention Extremities: No Pedal Edema Skin: Warm, Dry Psy/Mental Status: Alert, Normal Affect - Patient Data Lab Results Last 24 hrs: Laboratory Results - last 24 hr 08/25/21 08/25/21 08/25/21 Range/Units 10:30 10:30 10:46 WBC 9.9 (4.5-11.0) K/uL RBC 4.19 (3.30-5.50) M/uL Hgb 13.1 (12.0-15.0) g/dL Hct 39.5 (36.0-48.0) % MCV 94 (80-98) fL MCH 31 (27-31) pg MCHC 33 (32-36) % Plt Count 189 (150-400) K/uL Neut % (Auto) 87.1 H (36-66) % Lymph % (Auto) 7.3 L (24-44) % [place] % (Auto) 5.3 (2-6) % Eos % (Auto) 0.2 L (2-4) % Baso % (Auto) 0.1 (0-1) % Sodium 137 L (140-148) mmol/L Potassium 3.7 (3.6-5.2) mmol/L Chloride 100 (100-108) mmol/L Carbon Dioxide 31 (21-32) mmol/L Anion Gap 9.7 (5.0-14.0) mmol/L BUN 28 H (7-18) mg/dL Creatinine 1.1 H (0.6-1.0) mg/dL Est Cr Clr Drug Dosing 31.81 mL/min Estimated GFR (MDRD) 48 L (>60) Glucose 168 H (74-106) mg/dL Calcium 9.2 (8.5-10.1) mg/dL Total Bilirubin 0.5 (0.2-1.0) mg/dL AST 23 (15-37) U/L ALT 29 (12-78) U/L Alkaline Phosphatase 85 (46-116) U/L Total Protein 6.3 L (6.4-8.2) g/dL Albumin 3.3 L (3.4-5.0) g/dL Globulin 3.0 (2.3-3.5) g/dL Albumin/Globulin Ratio 1.1 L (1.2-2.2) Urine Color (YELLOW) Urine Appearance (CLEAR) Urine pH (5.0-8.0) Ur Specific [place] (1.008-1.030) Urine Protein (NEGATIVE) mg/dL Urine Glucose (UA) (NEGATIVE) mg/dL Urine Ketones (NEGATIVE) mg/dL Urine Occult Blood (NEGATIVE) Urine Nitrite (NEGATIVE) Urine Bilirubin (NEGATIVE) Urine Urobilinogen (0.2-1.0) EU/dL Ur Leukocyte Esterase (NEGATIVE) Urine RBC (0-5) Urine WBC (0-5) Ur Epithelial Cells Amorphous Sediment Urine Bacteria Urine Mucus Influenza Type A RNA Negative (NEGATIVE) RSV RNA (INAAT) Negative (NEGATIVE) Influenza Type B RNA Negative (NEGATIVE) SARS-CoV-2 RNA (ABDIRIZAK) Negative (NEGATIVE) 08/25/21 Range/Units 11:13 WBC (4.5-11.0) K/uL RBC (3.30-5.50) M/uL Hgb (12.0-15.0) g/dL Hct (36.0-48.0) % MCV (80-98) fL MCH (27-31) pg MCHC (32-36) % Plt Count (150-400) K/uL Neut % (Auto) (36-66) % Lymph % (Auto) (24-44) % [place] % (Auto) (2-6) % Eos % (Auto) (2-4) % Baso % (Auto) (0-1) % Sodium (140-148) mmol/L Potassium (3.6-5.2) mmol/L Chloride (100-108) mmol/L Carbon Dioxide (21-32) mmol/L Anion Gap (5.0-14.0) mmol/L BUN (7-18) mg/dL Creatinine (0.6-1.0) mg/dL Est Cr Clr Drug Dosing mL/min Estimated GFR (MDRD) (>60) Glucose (74-106) mg/dL Calcium (8.5-10.1) mg/dL Total Bilirubin (0.2-1.0) mg/dL AST (15-37) U/L ALT (12-78) U/L Alkaline Phosphatase (46-116) U/L Total Protein (6.4-8.2) g/dL Albumin (3.4-5.0) g/dL Globulin (2.3-3.5) g/dL Albumin/Globulin Ratio (1.2-2.2) Urine Color Yellow (YELLOW) Urine Appearance Clear (CLEAR) Urine pH 6.0 (5.0-8.0) Ur Specific [place] 1.025 (1.008-1.030) Urine Protein Negative (NEGATIVE) mg/dL Urine Glucose (UA) Negative (NEGATIVE) mg/dL Urine Ketones Negative (NEGATIVE) mg/dL Urine Occult Blood Negative (NEGATIVE) Urine Nitrite Negative (NEGATIVE) Urine Bilirubin Negative (NEGATIVE) Urine Urobilinogen 0.2 (0.2-1.0) EU/dL Ur Leukocyte Esterase Negative (NEGATIVE) Urine RBC 0-5 (0-5) Urine WBC 0-5 (0-5) Ur Epithelial Cells Few Amorphous Sediment Not seen Urine Bacteria Not seen Urine Mucus Not seen Influenza Type A RNA (NEGATIVE) RSV RNA (INAAT) (NEGATIVE) Influenza Type B RNA (NEGATIVE) SARS-CoV-2 RNA (ABDIRIZAK) (NEGATIVE) Result Diagrams: 08/25/21 10:30 08/25/21 10:30 Sepsis Event Note - Evaluation Sepsis Screening Result: No Definite Risk - Focused Exam Vital Signs: Vital Signs Temp Temp Pulse Resp BP BP Pulse Ox 08/26/21 07:00 35.7 C L 76 18 144/74 H 94 L 08/26/21 02:00 35.2 C L 90 16 173/87 H 97 08/25/21 22:21 36.3 C 67 16 178/83 H 95 - Problem List & Annotations (1) Compression fracture of L1 lumbar vertebra SNOMED Code(s): 727775312, 742518759, 48611091696851222 Code(s): S32.010A - WEDGE COMPRESSION FRACTURE OF FIRST LUMBAR VERTEBRA, INIT Status: Acute Current Visit: Yes Qualifiers: Encounter type: initial encounter Qualified Code(s): S32.010A - Wedge compression fracture of first lumbar vertebra, initial encounter for closed fra cture (2) Spinal stenosis of lumbar region SNOMED Code(s): 98845388 Code(s): M48.061 - SPINAL STENOSIS, LUMBAR REGION WITHOUT NEUROGENIC JESSIE Status: Chronic Current Visit: Yes Qualifiers: Neurogenic claudication status: without neurogenic claudication Qualified Code(s): M48.061 - Spinal stenosis, lumbar region without neurogenic claudication (3) Alzheimer's dementia without behavioral disturbance SNOMED Code(s): 67512207 Code(s): G30.9 - ALZHEIMER'S DISEASE, UNSPECIFIED; F02.80 - DEMENTIA IN OTH DISEASES CLASSD ELSWHR W/O BEHAVRL DISTURB Status: Chronic Current Visit: Yes Qualifiers: Alzheimer's disease onset: late-onset Qualified Code(s): G30.1 - Alzheimer's disease with late onset; F02.80 - Dementia in other diseases cla ssified elsewhere without behavioral disturbance - Problem List Review Problem List Initiated/Reviewed/Updated: Yes - My Orders Last 24 Hours: My Active Orders 08/25/21 Lunch Regular Diet [DIET] 08/25/21 12:22 Resuscitation Status Routine 08/25/21 12:57 Docusate Sodium/Sennosides [Senna Plus] 1 tab PO BID PRN Ibuprofen [Motrin] 600 mg PO Q6H PRN LORazepam [Ativan] 0.5 mg IVPUSH Q4H PRN Magnesium Hydroxide [Milk of Magnesia] 30 ml PO Q12H PRN Ondansetron [Zofran ODT] 4 mg PO Q6H PRN Ondansetron [Zofran] 4 mg IV Q6H PRN Trolamine Salicylate/Aloe Vera [Aspercreme 10%] 0 gm TOP Q2H PRN traMADol [Ultram] 50 mg PO Q6H PRN 08/25/21 12:57 Patient Status [ADT] Routine Antiembolic Devices [RC] .Routine Intake and Output [RC] QSHIFT Notify Provider Vital Signs [RC] ASDIRECTED Oxygen Therapy [RC] PRN Up With Assistance [RC] ASDIRECTED Vital Signs [RC] Q4H OT Evaluation and Treatment [CONS] Routine PT Evaluation and Treatment [CONS] Routine Sequential Compression Device [OM.PC] Routine 08/25/21 14:00 Acetaminophen [Tylenol Extra Strength] 1,000 mg PO TID 08/25/21 15:00 Lidocaine 5% [Lidoderm 5%] 700 mg TRDERM DAILY@1800 08/25/21 21:00 Melatonin 9 mg PO BEDTIME traZODone 50 mg PO BEDTIME 08/26/21 06:00 Remove Patch 1 ea TRDERM Q24H 08/26/21 09:00 HCTZ/Triamterene [Maxzide 25-37.5 MG] 1 each PO DAILY Venlafaxine [Effexor XR] 150 mg PO DAILY buPROPion [Wellbutrin XL] 300 mg PO DAILY - Plan Plan:: ASSESSMENT AND PLAN - L1 compression fracture-pain stable but not dramatically improved. She is able to get around with some assistance. Will be working with PT and OT. -Scheduled acetaminophen -As needed ibuprofen -Tramadol for more intense pain (daughter would like to avoid this medication and especially narcotics as much as possible) -Lidocaine patch -Physical therapy Severe spinal stenosis-noted at multiple levels on the CT scan. No difficulty with pain at this time. Some difficulty with balance/gait. No red flags such as bowel incontinence. -Physical therapy -Consider outpatient follow-up depending on how she does Alzheimer's dementia-moderate impairment at this point but no behavior issues. They did try her on donepezil but she did not tolerate this medication. - Melatonin at bedtime Essential hypertension-plan to continue home medications. Maintenance issues - -DVT prophylaxis-mechanical -GI prophylaxis-not indicated -Nutrition-regular Disposition -I anticipate discharge home with home care after the hospital stay Primary care physician -Dr. Christiane Dyson M.D.
[2021-08-26] MEDS: Ondansetron 4 MG Tab.DIS PO PRN (13:06)
[2021-08-26] MEDS: Trolamine Salicylate/Aloe Vera 10% Crm 85 GM Tube TOP PRN ×3 (13:09→20:20)
[2021-08-26] MEDS: Lidocaine 5% 700 MG Patch TRDERM SCH (17:14)
[2021-08-26] MEDS: Melatonin 3 MG Tab PO SCH (20:17)
[2021-08-26] MEDS: traZODone 50 MG Tab PO SCH (20:17)
[2021-08-26] MEDS: traMADol 50 MG Tab PO PRN (22:06)
[2021-08-27] MEDS: Ibuprofen 600 MG Tab PO PRN ×2 (04:40→13:26)
[2021-08-27] MEDS: traMADol 50 MG Tab PO PRN ×2 (04:40→17:19)
[2021-08-27] MEDS: Hydrochlorothiazide/Triamterene 25-37.5 Tab PO SCH (08:15)
[2021-08-27] MEDS: Venlafaxine 75 MG Cap.ER PO SCH (08:15)
[2021-08-27] MEDS: Acetaminophen 500 MG Tab PO SCH ×3 (08:15→20:11)
[2021-08-27] MEDS: buPROPion 150 MG Tab.ER PO SCH (08:15)
[2021-08-27] MEDS: Trolamine Salicylate/Aloe Vera 10% Crm 85 GM Tube TOP PRN (09:31)
--- NOTE | 2021-08-27 14:55 | PCM.PN ---
- General Info Date of Service: 08/27/21 Subjective Update: There were no acute events overnight. Patient continues to rate her pain as moderate. She has intermittently been using as needed ibuprofen and tramadol. She is not sure if the scheduled acetaminophen is helping. She is requiring less assistance each day. She is currently a moderate assist of 1. Appetite has been okay. She was able to tolerate a shower today. Functional Status: Reports: Tolerating Diet - Review of Systems Musculoskeletal: Reports: Back Pain - Patient Data Vitals - Most Recent: Last Vital Signs Temp 35.4 C L 08/27/21 14:04 Pulse 97 08/27/21 14:04 Resp 18 08/27/21 14:04 BP 149/93 H 08/27/21 14:04 Pulse Ox 93 L 08/27/21 14:04 Weight - Most Recent: 78.018 kg Med Orders - Current: Current Medications Acetaminophen (Acetaminophen 500 Mg Tab) 1,000 mg PO TID [facility] Last Admin: 08/27/21 13:25 Dose: 1,000 mg Documented by: Bupropion HCl (Bupropion 150 Mg Tab.Er) 300 mg PO DAILY [facility] Last Admin: 08/27/21 08:15 Dose: 300 mg Documented by: Ibuprofen (Ibuprofen 600 Mg Tab) 600 mg PO Q6H PRN PRN Reason: Pain/Fever Last Admin: 08/27/21 13:26 Dose: 600 mg Documented by: Lidocaine (Lidocaine 5% 700 Mg Patch) 700 mg TRDERM DAILY@1800 [facility] Last Admin: 08/26/21 17:14 Dose: 700 mg Documented by: Lorazepam (Lorazepam 2 Mg/Ml Sdv) 0.5 mg IVPUSH Q4H PRN PRN Reason: Nausea/Vomiting Magnesium Hydroxide (Magnesium Hydroxide 400 Mg/5 Ml Susp 30 Ml Cup) 30 ml PO Q12H PRN PRN Reason: Constipation Melatonin (Melatonin 3 Mg Tab) 9 mg PO BEDTIME [facility] Last Admin: 08/26/21 20:17 Dose: 9 mg Documented by: Miscellaneous Information (Remove Lidocaine Patch) 1 ea TRDERM Q24H [facility] Last Admin: 08/27/21 06:18 Dose: Not Given Documented by: Ondansetron HCl (Ondansetron 4 Mg/2 Ml Sdv) 4 mg IV Q6H PRN PRN Reason: Nausea/Vomiting Ondansetron HCl (Ondansetron 4 Mg Tab.Dis) 4 mg PO Q6H PRN PRN Reason: Nausea able to take PO Last Admin: 08/26/21 13:06 Dose: 4 mg Documented by: Senna/Docusate Sodium (Docusate Sodium/Sennosides 50-8.6 Mg Tab) 1 tab PO BID PRN PRN Reason: Constipation Sodium Chloride (Sodium Chloride 0.9% 10 Ml Syringe) 10 ml FLUSH ASDIRECTED PRN PRN Reason: Keep Vein Open Last Admin: 08/25/21 11:04 Dose: 10 ml Documented by: Tramadol HCl (Tramadol 50 Mg Tab) 50 mg PO Q6H PRN PRN Reason: Pain Last Admin: 08/27/21 04:40 Dose: 50 mg Documented by: Trazodone HCl (Trazodone 50 Mg Tab) 50 mg PO BEDTIME [facility] Last Admin: 08/26/21 20:17 Dose: 50 mg Documented by: Triamterene/Hydrochlorothiazide (Hydrochlorothiazide/Triamterene 25-37.5 Tab) 1 each PO DAILY [facility] Last Admin: 08/27/21 08:15 Dose: 1 each Documented by: Trolamine Salicylate (Trolamine Salicylate/Aloe Vera 10% Crm 85 Gm Tube) 0 gm TOP Q2H PRN PRN Reason: lower back pain Last Admin: 08/27/21 09:31 Dose: 1 applic Documented by: Venlafaxine HCl (Venlafaxine 75 Mg Cap.Er) 150 mg PO DAILY [facility] Last Admin: 08/27/21 08:15 Dose: 150 mg Documented by: Discontinued Medications Fentanyl (Fentanyl 100 Mcg/2 Ml Sdv) 25 mcg IVPUSH ONETIME ONE Stop: 08/25/21 09:35 Last Admin: 08/25/21 09:47 Dose: 25 mcg Documented by: Fentanyl (Fentanyl 100 Mcg/2 Ml Sdv) 50 mcg IVPUSH ONETIME ONE Stop: 08/25/21 10:50 Last Admin: 08/25/21 11:04 Dose: 50 mcg Documented by: - Exam Quality Assessment: No: Supplemental Oxygen General: Alert, Cooperative, No Acute Distress Lungs: Normal Respiratory Effort GI/Abdominal Exam: Soft, No Distention Extremities: No Pedal Edema Psy/Mental Status: Alert, Normal Affect - Patient Data Result Diagrams: 08/25/21 10:30 08/25/21 10:30 Sepsis Event Note - Evaluation Sepsis Screening Result: No Definite Risk - Focused Exam Vital Signs: Vital Signs Temp Pulse Resp BP BP Pulse Ox 08/27/21 14:04 35.4 C L 97 18 149/93 H 93 L 08/27/21 10:43 35.3 C L 91 18 134/78 91 L 08/27/21 07:08 35.6 C L 91 16 153/84 H 90 L 08/27/21 03:00 35.3 C L 92 18 156/75 H 94 L - Problem List & Annotations (1) Compression fracture of L1 lumbar vertebra SNOMED Code(s): 275248677, 850471847, [id number] Code(s): S32.010A - WEDGE COMPRESSION FRACTURE OF FIRST LUMBAR VERTEBRA, INIT Status: Acute Current Visit: Yes Qualifiers: Encounter type: initial encounter Qualified Code(s): S32.010A - Wedge compression fracture of first lumbar vertebra, initial encounter for closed fracture (2) Spinal stenosis of lumbar region SNOMED Code(s): 83621827 Code(s): M48.061 - SPINAL STENOSIS, LUMBAR REGION WITHOUT NEUROGENIC JESSIE Status: Chronic Current Visit: Yes Qualifiers: Neurogenic claudication status: without neurogenic claudication Qualified Code(s): M48.061 - Spinal stenosis, lumbar region without neurogenic claudication (3) Alzheimer's dementia without behavioral disturbance SNOMED Code(s): 75649631 Code(s): G30.9 - ALZHEIMER'S DISEASE, UNSPECIFIED; F02.80 - DEMENTIA IN OTH DISEASES CLASSD ELSWHR W/O BEHAVRL DISTURB Status: Chronic Current Visit: Yes Qualifiers: Alzheimer's disease onset: late-onset Qualified Code(s): G30.1 - Alzheimer's disease with late onset; F02.80 - Dementia in other diseases classified elsewhere without behavioral disturbance - Problem List Review Problem List Initiated/Reviewed/Updated: Yes - Plan Plan:: ASSESSMENT AND PLAN - L1 compression fracture-pain stable but not dramatically improved. She is able to get around with the assist of 1. She reports her pain is unchanged but she appears more comfortable and is moving better. is concerned about what to do if she has severe pain when she gets home. -Scheduled acetaminophen -As needed ibuprofen -Tramadol for more intense pain (daughter would like to avoid this medication and especially narcotics as much as possible) -Lidocaine patch -Physical therapy and Occupational Therapy Severe spinal stenosis-noted at multiple levels on the CT scan. No difficulty with pain at this time. Some difficulty with balance/gait. No red flags such as bowel incontinence. -Physical therapy -Consider outpatient follow-up depending on how she does Alzheimer's dementia-moderate impairment at this point but no behavior issues. They did try her on donepezil but she did not tolerate this medication. -Melatonin at bedtime Essential hypertension-plan to continue home medications. Maintenance issues - -DVT prophylaxis-mechanical -GI prophylaxis-not indicated -Nutrition-regular Disposition -I anticipate discharge home with home care after the hospital stay, hopefully in the next day or maybe 2 Primary care physician -Dr. Christiane Dyson M.D.
[2021-08-27] MEDS: Lidocaine 5% 700 MG Patch TRDERM SCH (17:41)
[2021-08-27] MEDS: Melatonin 3 MG Tab PO SCH (20:11)
[2021-08-27] MEDS: traZODone 50 MG Tab PO SCH (20:11)
[2021-08-28] MEDS: traMADol 50 MG Tab PO PRN ×3 (03:01→16:22)
[2021-08-28] MEDS: Ondansetron 4 MG Tab.DIS PO PRN (03:02)
[2021-08-28] MEDS: Venlafaxine 75 MG Cap.ER PO SCH (08:16)
[2021-08-28] MEDS: Hydrochlorothiazide/Triamterene 25-37.5 Tab PO SCH (08:17)
[2021-08-28] MEDS: Acetaminophen 500 MG Tab PO SCH ×3 (08:18→20:17)
[2021-08-28] MEDS: buPROPion 150 MG Tab.ER PO SCH (08:40)
--- NOTE | 2021-08-28 10:58 | PCM.PN ---
- General Info Date of Service: 08/28/21 Subjective Update: No acute events overnight. Patient continues to report moderate pain. She does not think any of the medications are helping though she has only intermittently required medications for breakthrough pain. Reports from nursing and physical therapy suggest she is moving better each day. She is currently standby assist. No fevers. Appetite good. Sleeping well. I reviewed the pain control regimen with her and her today. We are planning to schedule a nonsteroidal medication in addition to the acetaminophen and use the tramadol as needed. Her has a meeting with the assisted living folks tomorrow to increased services. Functional Status: Reports: Pain Controlled, Tolerating Diet - Patient Data Vitals - Most Recent: Last Vital Signs Temp 35.6 C L 08/28/21 07:21 Pulse 96 08/28/21 07:21 Resp 20 08/28/21 07:21 BP 139/85 08/28/21 07:21 Pulse Ox 95 08/28/21 07:21 Weight - Most Recent: 78.018 kg I&O - Last 24 Hours: Intake & Output 08/27/21 08/28/21 08/28/21 22:59 06:59 14:59 Intake Total 220 Balance 220 Med Orders - Current: Current Medications Acetaminophen (Acetaminophen 500 Mg Tab) 1,000 mg PO TID [facility] Last Admin: 08/28/21 08:18 Dose: 1,000 mg Documented by: Bupropion HCl (Bupropion 150 Mg Tab.Er) 300 mg PO DAILY [facility] Last Admin: 08/28/21 08:40 Dose: 300 mg Documented by: Lidocaine (Lidocaine 5% 700 Mg Patch) 700 mg TRDERM DAILY@1800 [facility] Last Admin: 08/27/21 17:41 Dose: 700 mg Documented by: Lorazepam (Lorazepam 2 Mg/Ml Sdv) 0.5 mg IVPUSH Q4H PRN PRN Reason: Nausea/Vomiting Magnesium Hydroxide (Magnesium Hydroxide 400 Mg/5 Ml Susp 30 Ml Cup) 30 ml PO Q12H PRN PRN Reason: Constipation Melatonin (Melatonin 3 Mg Tab) 9 mg PO BEDTIME [facility] Last Admin: 08/27/21 20:11 Dose: 9 mg Documented by: Miscellaneous Information (Remove Lidocaine Patch) 1 ea TRDERM Q24H [facility] Last Admin: 08/28/21 06:36 Dose: Not Given Documented by: Naproxen (Naproxen 250 Mg Tab) 500 mg PO BID [facility] Ondansetron HCl (Ondansetron 4 Mg/2 Ml Sdv) 4 mg IV Q6H PRN PRN Reason: Nausea/Vomiting Ondansetron HCl (Ondansetron 4 Mg Tab.Dis) 4 mg PO Q6H PRN PRN Reason: Nausea able to take PO Last Admin: 08/28/21 03:02 Dose: 4 mg Documented by: Senna/Docusate Sodium (Docusate Sodium/Sennosides 50-8.6 Mg Tab) 1 tab PO BID PRN PRN Reason: Constipation Sodium Chloride (Sodium Chloride 0.9% 10 Ml Syringe) 10 ml FLUSH ASDIRECTED PRN PRN Reason: Keep Vein Open Last Admin: 08/25/21 11:04 Dose: 10 ml Documented by: Tramadol HCl (Tramadol 50 Mg Tab) 50 mg PO Q4H PRN PRN Reason: Pain Trazodone HCl (Trazodone 50 Mg Tab) 50 mg PO BEDTIME [facility] Last Admin: 08/27/21 20:11 Dose: 50 mg Documented by: Triamterene/Hydrochlorothiazide (Hydrochlorothiazide/Triamterene 25-37.5 Tab) 1 each PO DAILY [facility] Last Admin: 08/28/21 08:17 Dose: 1 each Documented by: Trolamine Salicylate (Trolamine Salicylate/Aloe Vera 10% Crm 85 Gm Tube) 0 gm TOP Q2H PRN PRN Reason: lower back pain Last Admin: 08/27/21 09:31 Dose: 1 applic Documented by: Venlafaxine HCl (Venlafaxine 75 Mg Cap.Er) 150 mg PO DAILY [facility] Last Admin: 08/28/21 08:16 Dose: 150 mg Documented by: Discontinued Medications Fentanyl (Fentanyl 100 Mcg/2 Ml Sdv) 25 mcg IVPUSH ONETIME ONE Stop: 08/25/21 09:35 Last Admin: 08/25/21 09:47 Dose: 25 mcg Documented by: Fentanyl (Fentanyl 100 Mcg/2 Ml Sdv) 50 mcg IVPUSH ONETIME ONE Stop: 08/25/21 10:50 Last Admin: 08/25/21 11:04 Dose: 50 mcg Documented by: Ibuprofen (Ibuprofen 600 Mg Tab) 600 mg PO Q6H PRN PRN Reason: Pain/Fever Last Admin: 08/27/21 13:26 Dose: 600 mg Documented by: Tramadol HCl (Tramadol 50 Mg Tab) 50 mg PO Q6H PRN PRN Reason: Pain Last Admin: 08/28/21 10:18 Dose: 50 mg Documented by: - Exam Quality Assessment: No: Supplemental Oxygen General: Alert, Cooperative, No Acute Distress Lungs: Normal Respiratory Effort. No: Wheezing GI/Abdominal Exam: Soft, No Distention Extremities: No Pedal Edema Psy/Mental Status: Alert, Normal Affect - Patient Data Result Diagrams: 08/25/21 10:30 08/25/21 10:30 Sepsis Event Note - Evaluation Sepsis Screening Result: No Definite Risk - Focused Exam Vital Signs: Vital Signs Temp Pulse Resp BP Pulse Ox 08/28/21 07:21 35.6 C L 96 20 139/85 95 08/28/21 02:59 35.4 C L 96 13 150/81 H 92 L - Problem List & Annotations (1) Compression fracture of L1 lumbar vertebra SNOMED Code(s): 771195846, 328006275, 18740461040397665 Code(s): S32.010A - WEDGE COMPRESSION FRACTURE OF FIRST LUMBAR VERTEBRA, INIT Status: Acute Current Visit: Yes Qualifiers: Encounter type: initial encounter Qualified Code(s): S32.010A - Wedge compression fracture of first lumbar vertebra, initial encounter for closed fracture (2) Spinal stenosis of lumbar region SNOMED Code(s): 56952397 Code(s): M48.061 - SPINAL STENOSIS, LUMBAR REGION WITHOUT NEUROGENIC JESSIE Status: Chronic Current Visit: Yes Qualifiers: Neurogenic claudication status: without neurogenic claudication Qualified Code(s): M48.061 - Spinal stenosis, lumbar region without neurogenic claudication (3) Alzheimer's dementia without behavioral disturbance SNOMED Code(s): 42586508 Code(s): G30.9 - ALZHEIMER'S DISEASE, UNSPECIFIED; F02.80 - DEMENTIA IN OTH DISEASES CLASSD ELSWHR W/O BEHAVRL DISTURB Status: Chronic Current Visit: Yes Qualifiers: Alzheimer's disease onset: late-onset Qualified Code(s): G30.1 - Alzheimer's disease with late onset; F02.80 - Dementia in other diseases classified elsewhere without behavioral disturbance - Problem List Review Problem List Initiated/Reviewed/Updated: Yes - My Orders Last 24 Hours: My Active Orders 08/28/21 10:56 traMADol [Ultram] 50 mg PO Q4H PRN 08/28/21 10:57 Cooling Warming Measures [RC] ASDIRECTED Heat Therapy [OM.PC] Routine 08/28/21 11:00 Naproxen [Naprosyn] 500 mg PO BID - Plan Plan:: ASSESSMENT AND PLAN - L1 compression fracture-pain stable but not dramatically improved. She is able to get around with standby assist. She reports her pain is unchanged but she appears more comfortable and continues to improve. -Scheduled acetaminophen -Scheduled naproxen -Tramadol for more intense pain -Lidocaine patch -Physical therapy and Occupational Therapy Severe spinal stenosis-noted at multiple levels on the CT scan. No difficulty with pain at this time. Some difficulty with balance/gait. No red flags such as bowel incontinence. -Physical therapy -Consider outpatient follow-up depending on how she does Alzheimer's dementia-moderate impairment at this point but no behavior issues. They did try her on donepezil but she did not tolerate this medication. -Melatonin at bedtime Essential hypertension-plan to continue home medications. Maintenance issues - -DVT prophylaxis-mechanical -GI prophylaxis-not indicated -Nutrition-regular Disposition -I anticipate discharge home with home care after the hospital stay, hopefully tomorrow Primary care physician -Dr. Christiane Dyson M.D.
[2021-08-28] MEDS: Naproxen 250 MG Tab PO SCH ×2 (11:53→20:18)
[2021-08-28] MEDS: Lidocaine 5% 700 MG Patch TRDERM SCH (17:58)
[2021-08-28] MEDS: Melatonin 3 MG Tab PO SCH (20:18)
[2021-08-28] MEDS: traZODone 50 MG Tab PO SCH (20:18)
[2021-08-29] MEDS: buPROPion 150 MG Tab.ER PO SCH (08:52)
[2021-08-29] MEDS: Hydrochlorothiazide/Triamterene 25-37.5 Tab PO SCH (08:52)
[2021-08-29] MEDS: Venlafaxine 75 MG Cap.ER PO SCH (08:52)
[2021-08-29] MEDS: Naproxen 250 MG Tab PO SCH ×2 (08:52→20:20)
[2021-08-29] MEDS: Acetaminophen 500 MG Tab PO SCH ×3 (08:53→20:19)
[2021-08-29] MEDS: Magnesium Hydroxide 400 MG/5 ML Susp 30 ML Cup PO PRN (08:59)
[2021-08-29] MEDS: Trolamine Salicylate/Aloe Vera 10% Crm 85 GM Tube TOP PRN (11:28)
--- NOTE | 2021-08-29 15:47 | PCM.PN ---
- General Info Date of Service: 08/29/21 Subjective Update: There were no acute events overnight. Patient reports slight improvement of her pain compared to yesterday. She continues to have pain in her lower back. No n ausea or abdominal pain. Appetite is okay. Functional status has improved to the point that she is a standby assist mostly for safety. She is impulsive and does not always think to grab the walker. The patient, her and I sat down and talked about how well she is doing at this point. I think she is safe for discharge back to her assisted apartment. He is very nervous about her coming home in her current situation. He is worried about pain control and mobility. He will be implementing additional assisted living services but these will not be available until Wednesday and is not comfortable bringing her home until these services are in place. Functional Status: Reports: Pain Controlled, Tolerating Diet - Review of Systems General: Reports: Weakness Musculoskeletal: Reports: Back Pain - Patient Data Vitals - Most Recent: Last Vital Signs Temp 36.5 C 08/29/21 14:35 Pulse 92 08/29/21 14:35 Resp 16 08/29/21 14:35 BP 111/61 08/29/21 14:35 Pulse Ox 94 L 08/29/21 14:35 Weight - Most Recent: 78.018 kg I&O - Last 24 Hours: Intake & Output 08/29/21 08/29/21 08/29/21 06:59 14:59 22:59 Intake Total 270 Balance 270 Med Orders - Current: Current Medications Acetaminophen (Acetaminophen 500 Mg Tab) 1,000 mg PO TID [facility] Last Admin: 08/29/21 13:43 Dose: 1,000 mg Documented by: Bupropion HCl (Bupropion 150 Mg Tab.Er) 300 mg PO DAILY [facility] Last Admin: 08/29/21 08:52 Dose: 300 mg Documented by: Lidocaine (Lidocaine 5% 700 Mg Patch) 700 mg TRDERM DAILY@1800 [facility] Last Admin: 08/28/21 17:58 Dose: 700 mg Documented by: Lorazepam (Lorazepam 2 Mg/Ml Sdv) 0.5 mg IVPUSH Q4H PRN PRN Reason: Nausea/Vomiting Magnesium Hydroxide (Magnesium Hydroxide 400 Mg/5 Ml Susp 30 Ml Cup) 30 ml PO Q12H PRN PRN Reason: Constipation Last Admin: 08/29/21 08:59 Dose: 30 ml Documented by: Melatonin (Melatonin 3 Mg Tab) 9 mg PO BEDTIME [facility] Last Admin: 08/28/21 20:18 Dose: 9 mg Documented by: Miscellaneous Information (Remove Lidocaine Patch) 1 ea TRDERM Q24H [facility] Last Admin: 08/29/21 06:30 Dose: Not Given Documented by: Naproxen (Naproxen 250 Mg Tab) 500 mg PO BID [facility] Last Admin: 08/29/21 08:52 Dose: 500 mg Documented by: Ondansetron HCl (Ondansetron 4 Mg/2 Ml Sdv) 4 mg IV Q6H PRN PRN Reason: Nausea/Vomiting Ondansetron HCl (Ondansetron 4 Mg Tab.Dis) 4 mg PO Q6H PRN PRN Reason: Nausea able to take PO Last Admin: 08/28/21 03:02 Dose: 4 mg Documented by: Senna/Docusate Sodium (Docusate Sodium/Sennosides 50-8.6 Mg Tab) 1 tab PO BID PRN PRN Reason: Constipation Last Admin: 08/29/21 08:59 Dose: 1 tab Documented by: Sodium Chloride (Sodium Chloride 0.9% 10 Ml Syringe) 10 ml FLUSH ASDIRECTED PRN PRN Reason: Keep Vein Open Last Admin: 08/25/21 11:04 Dose: 10 ml Documented by: Tramadol HCl (Tramadol 50 Mg Tab) 50 mg PO Q4H PRN PRN Reason: Pain Last Admin: 08/28/21 16:22 Dose: 50 mg Documented by: Trazodone HCl (Trazodone 50 Mg Tab) 50 mg PO BEDTIME [facility] Last Admin: 08/28/21 20:18 Dose: 50 mg Documented by: Triamterene/Hydrochlorothiazide (Hydrochlorothiazide/Triamterene 25-37.5 Tab) 1 each PO DAILY [facility] Last Admin: 08/29/21 08:52 Dose: 1 each Documented by: Trolamine Salicylate (Trolamine Salicylate/Aloe Vera 10% Crm 85 Gm Tube) 0 gm TOP Q2H PRN PRN Reason: lower back pain Last Admin: 08/29/21 11:28 Dose: 1 applic Documented by: Venlafaxine HCl (Venlafaxine 75 Mg Cap.Er) 150 mg PO DAILY [facility] Last Admin: 08/29/21 08:52 Dose: 150 mg Documented by: Discontinued Medications Fentanyl (Fentanyl 100 Mcg/2 Ml Sdv) 25 mcg IVPUSH ONETIME ONE Stop: 08/25/21 09:35 Last Admin: 08/25/21 09:47 Dose: 25 mcg Documented by: Fentanyl (Fentanyl 100 Mcg/2 Ml Sdv) 50 mcg IVPUSH ONETIME ONE Stop: 08/25/21 10:50 Last Admin: 08/25/21 11:04 Dose: 50 mcg Documented by: Ibuprofen (Ibuprofen 600 Mg Tab) 600 mg PO Q6H PRN PRN Reason: Pain/Fever Last Admin: 08/27/21 13:26 Dose: 600 mg Documented by: Tramadol HCl (Tramadol 50 Mg Tab) 50 mg PO Q6H PRN PRN Reason: Pain Last Admin: 08/28/21 10:18 Dose: 50 mg Documented by: - Exam Quality Assessment: No: Supplemental Oxygen General: Alert, Cooperative, No Acute Distress Lungs: Normal Respiratory Effort GI/Abdominal Exam: Soft, No Distention Extremities: No Pedal Edema Psy/Mental Status: Alert, Normal Affect - Patient Data Result Diagrams: 08/25/21 10:30 08/25/21 10:30 Sepsis Event Note - Evaluation Sepsis Screening Result: No Definite Risk - Focused Exam Vital Signs: Vital Signs Temp Pulse Resp BP Pulse Ox 08/29/21 14:35 36.5 C 92 16 111/61 94 L 08/29/21 10:55 36.4 C 102 H 16 129/72 93 L 08/29/21 07:38 36.6 C 85 16 106/56 L 97 - Problem List & Annotations (1) Compression fracture of L1 lumbar vertebra SNOMED Code(s): 557943171, 923985873, 43191845741601881 Code(s): S32.010A - WEDGE COMPRESSION FRACTURE OF FIRST LUMBAR VERTEBRA, INIT Status: Acute Current Visit: Yes Qualifiers: Encounter type: initial encounter Qualified Code(s): S32.010A - Wedge compression fracture of first lumbar vertebra, initial encounter for closed fracture (2) Spinal stenosis of lumbar region SNOMED Code(s): 58149150 Code(s): M48.061 - SPINAL STENOSIS, LUMBAR REGION WITHOUT NEUROGENIC JESSIE Status: Chronic Current Visit: Yes Qualifiers: Neurogenic claudication status: without neurogenic claudication Qualified Code(s): M48.061 - Spinal stenosis, lumbar region without neurogenic claudication (3) Alzheimer's dementia without behavioral disturbance SNOMED Code(s): 15391365 Code(s): G30.9 - ALZHEIMER'S DISEASE, UNSPECIFIED; F02.80 - DEMENTIA IN OTH DISEASES CLASSD ELSWHR W/O BEHAVRL DISTURB Status: Chronic Current Visit: Yes Qualifiers: Alzheimer's disease onset: late-onset Qualified Code(s): G30.1 - Alzheimer's disease with late onset; F02.80 - Dementia in other diseases class ified elsewhere without behavioral disturbance - Problem List Review Problem List Initiated/Reviewed/Updated: Yes - Plan Plan:: ASSESSMENT AND PLAN - L1 compression fracture-pain stable but not dramatically improved. She is able to get around with standby assist. Pain control improving. -Scheduled acetaminophen -Scheduled naproxen -Tramadol for more intense pain -Lidocaine patch -Physical therapy and Occupational Therapy Severe spinal stenosis-noted at multiple levels on the CT scan. No difficulty with pain at this time. Some difficulty with balance/gait. No red flags such as bowel incontinence. -Physical therapy -Consider outpatient follow-up depending on how she does Alzheimer's dementia-moderate impairment at this point but no behavior issues. They did try her on donepezil but she did not tolerate this medication. -Melatonin at bedtime -Outpatient follow-up with neuropsych Essential hypertension-plan to continue home medications. Maintenance issues - -DVT prophylaxis-mechanical -GI prophylaxis-not indicated -Nutrition-regular Disposition -I anticipate discharge home with home care after the hospital stay. The patient is doing well and has her pain well controlled. She is ready for discharge to an outpatient setting. Her is not comfortable with her coming home until he has additional assisted living services in place and unfortunately this will not be until Wednesday, 3 days from now. Primary care physician -Dr. Christiane Dyson M.D.
[2021-08-29] MEDS: Lidocaine 5% 700 MG Patch TRDERM SCH (17:11)
[2021-08-29] MEDS: Melatonin 3 MG Tab PO SCH (20:19)
[2021-08-29] MEDS: traZODone 50 MG Tab PO SCH (20:20)
[2021-08-30] MEDS: Magnesium Hydroxide 400 MG/5 ML Susp 30 ML Cup PO PRN (05:14)
[2021-08-30] MEDS: traMADol 50 MG Tab PO PRN ×4 (07:53→23:31)
[2021-08-30] MEDS: Trolamine Salicylate/Aloe Vera 10% Crm 85 GM Tube TOP PRN ×2 (07:54→11:01)
[2021-08-30] MEDS: Naproxen 250 MG Tab PO SCH ×2 (08:26→20:32)
[2021-08-30] MEDS: Acetaminophen 500 MG Tab PO SCH ×3 (08:26→20:32)
[2021-08-30] MEDS: Hydrochlorothiazide/Triamterene 25-37.5 Tab PO SCH (08:26)
[2021-08-30] MEDS: buPROPion 150 MG Tab.ER PO SCH (08:27)
[2021-08-30] MEDS: Venlafaxine 75 MG Cap.ER PO SCH (08:27)
--- NOTE | 2021-08-30 09:55 | PCM.PN ---
- General Info Date of Service: 08/30/21 Subjective Update: No acute events overnight. Vital signs have been stable. Patient reports no significant change in her pain since yesterday. Nursing and physical therapy both report improvements in her functional status. She was able to ambulate a good distance down the hallway. Most of her pain occurs when she is trying to go from laying to sitting or sitting to standing. When she is up she appears comfortable. Functional Status: Reports: Pain Controlled, Tolerating Diet - Review of Systems Musculoskeletal: Reports: Back Pain - Patient Data Vitals - Most Recent: Last Vital Signs Temp 35.8 C L 08/30/21 07:31 Pulse 88 08/30/21 07:31 Resp 16 08/30/21 07:31 BP 125/66 08/30/21 07:31 Pulse Ox 94 L 08/30/21 03:00 Weight - Most Recent: 78.018 kg I&O - Last 24 Hours: Intake & Output 08/29/21 08/30/21 08/30/21 22:59 06:59 14:59 Intake Total 200 320 Balance 200 320 Med Orders - Current: Current Medications Acetaminophen (Acetaminophen 500 Mg Tab) 1,000 mg PO TID [facility] Last Admin: 08/30/21 08:26 Dose: 1,000 mg Documented by: Bupropion HCl (Bupropion 150 Mg Tab.Er) 300 mg PO DAILY [facility] Last Admin: 08/30/21 08:27 Dose: 300 mg Documented by: Lidocaine (Lidocaine 5% 700 Mg Patch) 700 mg TRDERM DAILY@1800 [facility] Last Admin: 08/29/21 17:11 Dose: 700 mg Documented by: Lorazepam (Lorazepam 2 Mg/Ml Sdv) 0.5 mg IVPUSH Q4H PRN PRN Reason: Nausea/Vomiting Magnesium Hydroxide (Magnesium Hydroxide 400 Mg/5 Ml Susp 30 Ml Cup) 30 ml PO Q12H PRN PRN Reason: Constipation Last Admin: 08/30/21 05:14 Dose: 30 ml Documented by: Melatonin (Melatonin 3 Mg Tab) 9 mg PO BEDTIME [facility] Last Admin: 08/29/21 20:19 Dose: 9 mg Documented by: Miscellaneous Information (Remove Lidocaine Patch) 1 ea TRDERM Q24H [facility] Last Admin: 08/30/21 07:47 Dose: Not Given Documented by: Naproxen (Naproxen 250 Mg Tab) 500 mg PO BID [facility] Last Admin: 08/30/21 08:26 Dose: 500 mg Documented by: Ondansetron HCl (Ondansetron 4 Mg/2 Ml Sdv) 4 mg IV Q6H PRN PRN Reason: Nausea/Vomiting Ondansetron HCl (Ondansetron 4 Mg Tab.Dis) 4 mg PO Q6H PRN PRN Reason: Nausea able to take PO Last Admin: 08/28/21 03:02 Dose: 4 mg Documented by: Senna/Docusate Sodium (Docusate Sodium/Sennosides 50-8.6 Mg Tab) 1 tab PO BID PRN PRN Reason: Constipation Last Admin: 08/30/21 08:34 Dose: 1 tab Documented by: Sodium Chloride (Sodium Chloride 0.9% 10 Ml Syringe) 10 ml FLUSH ASDIRECTED PRN PRN Reason: Keep Vein Open Last Admin: 08/25/21 11:04 Dose: 10 ml Documented by: Tramadol HCl (Tramadol 50 Mg Tab) 50 mg PO Q4H PRN PRN Reason: Pain Last Admin: 08/30/21 07:53 Dose: 50 mg Documented by: Trazodone HCl (Trazodone 50 Mg Tab) 50 mg PO BEDTIME [facility] Last Admin: 08/29/21 20:20 Dose: 50 mg Documented by: Triamterene/Hydrochlorothiazide (Hydrochlorothiazide/Triamterene 25-37.5 Tab) 1 each PO DAILY [facility] Last Admin: 08/30/21 08:26 Dose: 1 each Documented by: Trolamine Salicylate (Trolamine Salicylate/Aloe Vera 10% Crm 85 Gm Tube) 0 gm TOP Q2H PRN PRN Reason: lower back pain Last Admin: 08/30/21 07:54 Dose: 1 applic Documented by: Venlafaxine HCl (Venlafaxine 75 Mg Cap.Er) 150 mg PO DAILY [facility] Last Admin: 08/30/21 08:27 Dose: 150 mg Documented by: Discontinued Medications Fentanyl (Fentanyl 100 Mcg/2 Ml Sdv) 25 mcg IVPUSH ONETIME ONE Stop: 08/25/21 09:35 Last Admin: 08/25/21 09:47 Dose: 25 mcg Documented by: Fentanyl (Fentanyl 100 Mcg/2 Ml Sdv) 50 mcg IVPUSH ONETIME ONE Stop: 08/25/21 10:50 Last Admin: 08/25/21 11:04 Dose: 50 mcg Documented by: Ibuprofen (Ibuprofen 600 Mg Tab) 600 mg PO Q6H PRN PRN Reason: Pain/Fever Last Admin: 08/27/21 13:26 Dose: 600 mg Documented by: Tramadol HCl (Tramadol 50 Mg Tab) 50 mg PO Q6H PRN PRN Reason: Pain Last Admin: 08/28/21 10:18 Dose: 50 mg Documented by: - Exam Quality Assessment: No: Supplemental Oxygen General: Alert, Cooperative, No Acute Distress. No: Oriented Lungs: Normal Respiratory Effort GI/Abdominal Exam: Soft, No Distention Extremities: No Pedal Edema Psy/Mental Status: Alert, Normal Affect - Patient Data Result Diagrams: 08/25/21 10:30 08/25/21 10:30 Sepsis Event Note - Evaluation Sepsis Screening Result: No Definite Risk - Focused Exam Vital Signs: Vital Signs Temp Pulse Resp BP BP Pulse Ox 08/30/21 07:31 35.8 C L 88 16 125/66 08/30/21 03:00 36.6 C 81 16 120/74 94 L 08/29/21 22:11 36.5 C 84 16 107/47 L 95 - Problem List & Annotations (1) Compression fracture of L1 lumbar vertebra SNOMED Code(s): 632604031, 438541124, 57248877981306123 Code(s): S32.010A - WEDGE COMPRESSION FRACTURE OF FIRST LUMBAR VERTEBRA, INIT Status: Acute Current Visit: Yes Qualifiers: Encounter type: initial encounter Qualified Code(s): S32.010A - Wedge compression fracture of first lumbar vertebra, initial encounter for closed fracture (2) Spinal stenosis of lumbar region SNOMED Code(s): 35604239 Code(s): M48.061 - SPINAL STENOSIS, LUMBAR REGION WITHOUT NEUROGENIC JESSIE Status: Chronic Current Visit: Yes Qualifiers: Neurogenic claudication status: without neurogenic claudication Qualified Code(s): M48.061 - Spinal stenosis, lumbar region without neurogenic claudication (3) Alzheimer's dementia without behavioral disturbance SNOMED Code(s): 52460167 Code(s): G30.9 - ALZHEIMER'S DISEASE, UNSPECIFIED; F02.80 - DEMENTIA IN OTH DISEASES CLASSD ELSWHR W/O BEHAVRL DISTURB Status: Chronic Current Visit: Yes Qualifiers: Alzheimer's disease onset: late-onset Qualified Code(s): G30.1 - Alzheimer's disease with late onset; F02.80 - Dementia in other diseases classified elsewhere without behavioral disturbance - Problem List Review Problem List Initiated/Reviewed/Updated: Yes - Plan Plan:: ASSESSMENT AND PLAN - L1 compression fracture-pain stable but not dramatically improved per the patient's report. She is able to get around with standby assist. Pain control appears adequate and she appears comfortable. -Scheduled acetaminophen -Scheduled naproxen -Tramadol for more intense pain -Lidocaine patch -Physical therapy and Occupational Therapy Severe spinal stenosis-noted at multiple levels on the CT scan. No difficulty with pain at this time. Some difficulty with balance/gait. No red flags such as bowel incontinence. -Physical therapy -Consider outpatient follow-up depending on how she does Alzheimer's dementia-moderate impairment at this point but no behavior issues. -Melatonin at bedtime -Outpatient follow-up with neuropsych Essential hypertension-plan to continue home medications. Maintenance issues - -DVT prophylaxis-mechanical -GI prophylaxis-not indicated -Nutrition-regular Disposition -I anticipate discharge home with home care after the hospital stay. The patient is doing well and has her pain well controlled. She is ready for discharge to an outpatient setting. Her is not comfortable with her coming home until he has additional assisted living services in place and unfortunately this will not be until Wednesday. Primary care physician -Dr. Christiane Dyson M.D.
[2021-08-30] MEDS: Lidocaine 5% 700 MG Patch TRDERM SCH (17:15)
[2021-08-30] MEDS: traZODone 50 MG Tab PO SCH (20:32)
[2021-08-30] MEDS: Melatonin 3 MG Tab PO SCH (20:32)
[2021-08-31] MEDS: Venlafaxine 75 MG Cap.ER PO SCH (08:56)
[2021-08-31] MEDS: Hydrochlorothiazide/Triamterene 25-37.5 Tab PO SCH (08:56)
[2021-08-31] MEDS: Acetaminophen 500 MG Tab PO SCH ×3 (08:57→20:26)
[2021-08-31] MEDS: buPROPion 150 MG Tab.ER PO SCH (08:57)
[2021-08-31] MEDS: Naproxen 250 MG Tab PO SCH ×2 (08:57→20:25)
[2021-08-31] MEDS: Magnesium Hydroxide 400 MG/5 ML Susp 30 ML Cup PO PRN (10:51)
[2021-08-31] MEDS ORDERED: Bisacodyl 10 MG Supp RECTAL ONE (12:46)
--- NOTE | 2021-08-31 12:52 | PCM.PN ---
- General Info Date of Service: 08/31/21 Subjective Update: Ms. Eden has been stable overnight, she continues to experience pain with transfers. She has been able to ambulate short distances and feels relatively comfortable lying in bed and sitting. Functional Status: Reports: Tolerating Diet, Ambulating, Urinating - Review of Systems General: Reports: Weakness, Fatigue. Denies: Fever, Chills Pulmonary: Reports: No Symptoms Cardiovascular: Reports: No Symptoms Gastrointestinal: Reports: No Symptoms Genitourinary: Reports: No Symptoms - Patient Data Vitals - Most Recent: Last Vital Signs Temp 98.2 F 08/31/21 06:00 Pulse 84 08/31/21 10:00 Resp 18 08/31/21 06:00 BP 156/85 H 08/31/21 06:00 Pulse Ox 96 08/31/21 06:00 Weight - Most Recent: 172 lb Med Orders - Current: Current Medications Acetaminophen (Acetaminophen 500 Mg Tab) 1,000 mg PO TID [facility] Last Admin: 08/31/21 08:57 Dose: 1,000 mg Documented by: Bisacodyl (Bisacodyl 10 Mg Supp) 10 mg RECTAL ONETIME ONE Stop: 08/31/21 12:47 Bupropion HCl (Bupropion 150 Mg Tab.Er) 300 mg PO DAILY [facility] Last Admin: 08/31/21 08:57 Dose: 300 mg Documented by: Lidocaine (Lidocaine 5% 700 Mg Patch) 700 mg TRDERM DAILY@1800 [facility] Last Admin: 08/30/21 17:15 Dose: 700 mg Documented by: Lorazepam (Lorazepam 2 Mg/Ml Sdv) 0.5 mg IVPUSH Q4H PRN PRN Reason: Nausea/Vomiting Magnesium Hydroxide (Magnesium Hydroxide 400 Mg/5 Ml Susp 30 Ml Cup) 30 ml PO Q12H PRN PRN Reason: Constipation Last Admin: 08/31/21 10:51 Dose: 30 ml Documented by: Melatonin (Melatonin 3 Mg Tab) 9 mg PO BEDTIME [facility] Last Admin: 08/30/21 20:32 Dose: 9 mg Documented by: Miscellaneous Information (Remove Lidocaine Patch) 1 ea TRDERM Q24H [facility] Last Admin: 08/31/21 06:20 Dose: Not Given Documented by: Naproxen (Naproxen 250 Mg Tab) 500 mg PO BID [facility] Last Admin: 08/31/21 08:57 Dose: 500 mg Documented by: Ondansetron HCl (Ondansetron 4 Mg/2 Ml Sdv) 4 mg IV Q6H PRN PRN Reason: Nausea/Vomiting Ondansetron HCl (Ondansetron 4 Mg Tab.Dis) 4 mg PO Q6H PRN PRN Reason: Nausea able to take PO Last Admin: 08/28/21 03:02 Dose: 4 mg Documented by: Senna/Docusate Sodium (Docusate Sodium/Sennosides 50-8.6 Mg Tab) 1 tab PO BID PRN PRN Reason: Constipation Last Admin: 08/30/21 20:39 Dose: 1 tab Documented by: Sodium Chloride (Sodium Chloride 0.9% 10 Ml Syringe) 10 ml FLUSH ASDIRECTED PRN PRN Reason: Keep Vein Open Last Admin: 08/25/21 11:04 Dose: 10 ml Documented by: Tramadol HCl (Tramadol 50 Mg Tab) 50 mg PO Q4H PRN PRN Reason: Pain Last Admin: 08/30/21 23:31 Dose: 50 mg Documented by: Trazodone HCl (Trazodone 50 Mg Tab) 50 mg PO BEDTIME [facility] Last Admin: 08/30/21 20:32 Dose: 50 mg Documented by: Triamterene/Hydrochlorothiazide (Hydrochlorothiazide/Triamterene 25-37.5 Tab) 1 each PO DAILY [facility] Last Admin: 08/31/21 08:56 Dose: 1 each Documented by: Trolamine Salicylate (Trolamine Salicylate/Aloe Vera 10% Crm 85 Gm Tube) 0 gm TOP Q2H PRN PRN Reason: lower back pain Last Admin: 08/30/21 11:01 Dose: 1 applic Documented by: Venlafaxine HCl (Venlafaxine 75 Mg Cap.Er) 150 mg PO DAILY [facility] Last Admin: 08/31/21 08:56 Dose: 150 mg Documented by: Discontinued Medications Fentanyl (Fentanyl 100 Mcg/2 Ml Sdv) 25 mcg IVPUSH ONETIME ONE Stop: 08/25/21 09:35 Last Admin: 08/25/21 09:47 Dose: 25 mcg Documented by: Fentanyl (Fentanyl 100 Mcg/2 Ml Sdv) 50 mcg IVPUSH ONETIME ONE Stop: 08/25/21 10:50 Last Admin: 08/25/21 11:04 Dose: 50 mcg Documented by: Ibuprofen (Ibuprofen 600 Mg Tab) 600 mg PO Q6H PRN PRN Reason: Pain/Fever Last Admin: 08/27/21 13:26 Dose: 600 mg Documented by: Tramadol HCl (Tramadol 50 Mg Tab) 50 mg PO Q6H PRN PRN Reason: Pain Last Admin: 08/28/21 10:18 Dose: 50 mg Documented by: - Exam Quality Assessment: DVT Prophylaxis General: Alert, Cooperative, Mild Distress Lungs: Clear to Auscultation, Normal Respiratory Effort Cardiovascular: Regular Rate, Regular Rhythm, No Murmurs GI/Abdominal Exam: Soft, Non-Tender, No Organomegaly, No Distention Extremities: Non-Tender, No Pedal Edema - Patient Data Result Diagrams: 08/25/21 10:30 08/25/21 10:30 Sepsis Event Note - Evaluation Sepsis Screening Result: No Definite Risk - Focused Exam Vital Signs: Vital Signs Temp Pulse Resp BP Pulse Ox 08/31/21 10:00 84 08/31/21 06:00 98.2 F 87 18 156/85 H 96 - Problem List Review Problem List Initiated/Reviewed/Updated: Yes - My Orders Last 24 Hours: My Active Orders 08/31/21 12:46 bisacodyL [Dulcolax] 10 mg RECTAL ONETIME ONE polyethylene glycoL 3350 [MiraLAX] 34 gm PO ONETIME ONE - Plan Plan:: ASSESSMENT AND PLAN - L1 compression fracture-pain stable but not dramatically improved per the patient's report. She is able to get around with standby assist. Pain control appears adequate and she appears comfortable. -Scheduled acetaminophen -Scheduled naproxen -Tramadol for more intense pain -Lidocaine patch -Physical therapy and Occupational Therapy Severe spinal stenosis-noted at multiple levels on the CT scan. -Physical therapy -Consider outpatient follow-up depending on how she does Alzheimer's dementia-moderate impairment at this point but no behavior issues. -Melatonin at bedtime -Outpatient follow-up with neuropsych Essential hypertension-plan to continue home medications. Maintenance issues - -DVT prophylaxis-mechanical -GI prophylaxis-not indicated -Nutrition-regular Disposition -I anticipate discharge home with home care after the hospital stay. The patient is doing well and has her pain well controlled. She is ready for discharge to an outpatient setting. Her is not comfortable with her coming home until he has additional assisted living services in place and unfortunately this will not be until Wednesday. Primary care physician -Dr. Christiane Bee
[2021-08-31] MEDS ORDERED: Polyethylene Glycol 3350 Powder 17 GM Packet PO ONE (13:00)
[2021-08-31] MEDS: Lidocaine 5% 700 MG Patch TRDERM SCH (17:31)
[2021-08-31] MEDS: Melatonin 3 MG Tab PO SCH (20:24)
[2021-08-31] MEDS: traZODone 50 MG Tab PO SCH (20:26)
[2021-09-01] MEDS: Venlafaxine 75 MG Cap.ER PO SCH (08:26)
[2021-09-01] MEDS: Hydrochlorothiazide/Triamterene 25-37.5 Tab PO SCH (08:27)
[2021-09-01] MEDS: Acetaminophen 500 MG Tab PO SCH (08:27)
[2021-09-01] MEDS: Naproxen 250 MG Tab PO SCH (08:27)
[2021-09-01] MEDS: buPROPion 150 MG Tab.ER PO SCH (08:28)
--- NOTE | 2021-09-01 09:25 | PCM.DCSUM1 ---
Discharge Summary - Hospital Course Brief History: Ms. Eden is a 80-year-old woman who was admitted through the emergency department with severe lower back pain secondary to an L1 spinal compression fracture, secondary to a fall earlier on the day of admission. - Discharge Data Discharge Date: 09/01/21 Discharge Disposition: Home, W Home Health Agency 06 Condition: Fair - Referral to Home Health Date of Face to Face Encounter: 09/01/21 Reason for Homebound Status: Dementia, L1 spinal compression fracture, spinal stenosis Primary Care Physician: Christiane Bee MD Skilled Need: Nursing care, home health aide, home physical therapy and Occupational Therapy - Patient Summary/Data Consults: Consultations 08/25/21 12:57 OT Evaluation and Treatment [CONS] Routine Please Evaluate and Treat. OT Reason for Consult: ADL's This query below is only for informational purposes and is not editable. PT Evaluation and Treatment [CONS] Routine Please Evaluate and Treat. PT Reason for Consult: Strengthening This query below is only for informational purposes and is not editable. Hospital Course: Ms. Eden presented to the emergency room with lower back pain. She does have some dementia so her daughter did provide some additional history. She has fallen twice in the past couple of days. There were no apparent injuries to the fall yesterday. After the fall today she had difficulty getting up and was complaining of back pain so she was brought in for evaluation. We did question her about recent difficulties with lower back pain or radicular pain and she has not had any of these. Work-up in the emergency room revealed a compression fracture at L1 which was relatively mild. The CT scan did also show severe spinal stenosis at multiple levels in the lumbar spine. She was unable to transfer and ambulate while in the emergency department and was admitted for ongoing pain management and supportive care. During her hospital stay she was seen daily by physical therapy. She was started on tramadol as well as lidoc julio cesar patch for management of her pain. She slowly progressed during hospitalization and was able to transfer and ambulate with minimal assistance by the time of discharge. She will be discharged home with home care services including physical therapy and Occupational Therapy. Follow-up appointment will be scheduled with her primary care provider within 1 week. Activity will be as tolerated and she will resume her usual diet. - Patient Instructions Diet: Usual Diet as Tolerated Activity: As Tolerated Other/Special Instructions: Please schedule follow-up appointment with primary care provider within 1 week. Please arrange for home care services including home physical therapy and Occupational Therapy after discharge. - Discharge Plan *PRESCRIPTION DRUG MONITORING PROGRAM REVIEWED*: Not Applicable *COPY OF PRESCRIPTION DRUG MONITORING REPORT IN PATIENT EDWAR: Not Applicable Prescriptions/Med Rec: Lidocaine 5% [Lidoderm 5%] 700 mg TRDERM DAILY@1800 #30 patch traMADol [Ultram] 50 mg PO Q4H PRN #30 tablet PRN Reason: Pain Home Medications: Home Meds Cholecalciferol (Vitamin D3) [Vitamin D] 5,000 unit PO DAILY 08/25/21 [History] Multivit-Min/Iron/Folic/Lutein [Centrum Silver Women Tablet] 1 tab PO DAILY 08/25/21 [History] Triamterene/Hydrochlorothiazid [Triamterene-HCTZ 37.5-25 MG] 1 each PO DAILY 08/25/21 [History] Venlafaxine HCl [Venlafaxine ER] 150 mg PO DAILY 08/25/21 [History] buPROPion HCL [Bupropion HCl ER] 300 mg PO DAILY 08/25/21 [History] traZODone 50 mg PO BEDTIME 08/25/21 [History] Lidocaine 5% [Lidoderm 5%] 700 mg TRDERM DAILY@1800 #30 patch 09/01/21 [Rx] traMADol [Ultram] 50 mg PO Q4H PRN #30 tablet 09/01/21 [Rx] Patient Handouts: Fall Prevention in the Home, Adult, [id number], Spinal Stenosis, [id number], Spinal Compression Fracture Referrals: Christiane Bee MD [Primary Care Provider] - 09/02/21 3:20 pm (Please arrive 15 minutes early to register for your appointment) - Discharge Summary/Plan Comment DC Time >30 min.: No Total # of Minutes for Discharge Time: 15 - Patient Data Vitals - Most Recent: Last Vital Signs Temp 98.1 F 09/01/21 08:00 Pulse 84 09/01/21 08:00 Resp 16 09/01/21 08:00 BP 151/76 H 09/01/21 08:00 Pulse Ox 93 L 09/01/21 08:00 Weight - Most Recent: 172 lb I&O - Last 24 hours: Intake & Output 08/31/21 09/01/21 09/01/21 22:59 06:59 14:59 Intake Total 980 Balance 980 Med Orders - Current: Current Medications Acetaminophen (Acetaminophen 500 Mg Tab) 1,000 mg PO TID [facility] Last Admin: 09/01/21 08:27 Dose: 1,000 mg Documented by: Bupropion HCl (Bupropion 150 Mg Tab.Er) 300 mg PO DAILY [facility] Last Admin: 09/01/21 08:28 Dose: 300 mg Documented by: Lidocaine (Lidocaine 5% 700 Mg Patch) 700 mg TRDERM DAILY@1800 [facility] Last Admin: 08/31/21 17:31 Dose: 700 mg Documented by: Lorazepam (Lorazepam 2 Mg/Ml Sdv) 0.5 mg IVPUSH Q4H PRN PRN Reason: Nausea/Vomiting Magnesium Hydroxide (Magnesium Hydroxide 400 Mg/5 Ml Susp 30 Ml Cup) 30 ml PO Q12H PRN PRN Reason: Constipation Last Admin: 08/31/21 10:51 Dose: 30 ml Documented by: Melatonin (Melatonin 3 Mg Tab) 9 mg PO BEDTIME [facility] Last Admin: 08/31/21 20:24 Dose: 9 mg Documented by: Miscellaneous Information (Remove Lidocaine Patch) 1 ea TRDERM Q24H [facility] Last Admin: 09/01/21 06:39 Dose: Not Given Documented by: Naproxen (Naproxen 250 Mg Tab) 500 mg PO BID [facility] Last Admin: 09/01/21 08:27 Dose: 500 mg Documented by: Ondansetron HCl (Ondansetron 4 Mg/2 Ml Sdv) 4 mg IV Q6H PRN PRN Reason: Nausea/Vomiting Ondansetron HCl (Ondansetron 4 Mg Tab.Dis) 4 mg PO Q6H PRN PRN Reason: Nausea able to take PO Last Admin: 08/28/21 03:02 Dose: 4 mg Documented by: Senna/Docusate Sodium (Docusate Sodium/Sennosides 50-8.6 Mg Tab) 1 tab PO BID PRN PRN Reason: Constipation Last Admin: 08/30/21 20:39 Dose: 1 tab Documented by: Sodium Chloride (Sodium Chloride 0.9% 10 Ml Syringe) 10 ml FLUSH ASDIRECTED PRN PRN Reason: Keep Vein Open Last Admin: 08/25/21 11:04 Dose: 10 ml Documented by: Tramadol HCl (Tramadol 50 Mg Tab) 50 mg PO Q4H PRN PRN Reason: Pain Last Admin: 08/30/21 23:31 Dose: 50 mg Documented by: Trazodone HCl (Trazodone 50 Mg Tab) 50 mg PO BEDTIME [facility] Last Admin: 08/31/21 20:26 Dose: 50 mg Documented by: Triamterene/Hydrochlorothiazide (Hydrochlorothiazide/Triamterene 25-37.5 Tab) 1 each PO DAILY [facility] Last Admin: 09/01/21 08:27 Dose: 1 each Documented by: Trolamine Salicylate (Trolamine Salicylate/Aloe Vera 10% Crm 85 Gm Tube) 0 gm TOP Q2H PRN PRN Reason: lower back pain Last Admin: 08/30/21 11:01 Dose: 1 applic Documented by: Venlafaxine HCl (Venlafaxine 75 Mg Cap.Er) 150 mg PO DAILY [facility] Last Admin: 09/01/21 08:26 Dose: 150 mg Documented by: Discontinued Medications Bisacodyl (Bisacodyl 10 Mg Supp) 10 mg RECTAL ONETIME ONE Stop: 08/31/21 12:47 Last Admin: 08/31/21 13:47 Dose: 10 mg Documented by: Fentanyl (Fentanyl 100 Mcg/2 Ml Sdv) 25 mcg IVPUSH ONETIME ONE Stop: 08/25/21 09:35 Last Admin: 08/25/21 09:47 Dose: 25 mcg Documented by: Fentanyl (Fentanyl 100 Mcg/2 Ml Sdv) 50 mcg IVPUSH ONETIME ONE Stop: 08/25/21 10:50 Last Admin: 08/25/21 11:04 Dose: 50 mcg Documented by: Ibuprofen (Ibuprofen 600 Mg Tab) 600 mg PO Q6H PRN PRN Reason: Pain/Fever Last Admin: 08/27/21 13:26 Dose: 600 mg Documented by: Polyethylene Glycol (Polyethylene Glycol 3350 Powder 17 Gm Packet) 34 gm PO ONETIME ONE Stop: 08/31/21 13:01 Last Admin: 08/31/21 13:47 Dose: 34 gm Documented by: Tramadol HCl (Tramadol 50 Mg Tab) 50 mg PO Q6H PRN PRN Reason: Pain Last Admin: 08/28/21 10:18 Dose: 50 mg Documented by: - Exam General: Reports: Alert, Cooperative, Mild Distress. Denies: Oriented Lungs: Reports: Clear to Auscultation, Normal Respiratory Effort Cardiovascular: Reports: Regular Rate, Regular Rhythm, No Murmurs GI/Abdominal Exam: Soft, Non-Tender, No Organomegaly, No Distention Extremities: Non-Tender, No Pedal Edema
== END 2021-09-01 10:33 | disposition home health service (06) | DRG 552 ==
LOC: JP.ED 07:50 → JP.ICU 12:21
PROVIDERS: ADMIT Internal Medicine; ATTEND Hospitalist
DX: S32.010A Wedge compression fracture of first lumbar vertebra, initial encounter for closed fracture (principal); W19.XXXA Unspecified fall, initial encounter; Z91.81 History of falling; Y92.099 Unspecified place in other non-institutional residence as the place of occurrence of the external cause; Z79.899 Other long term (current) drug therapy; W18.30XA Fall on same level, unspecified, initial encounter; Y92.89 Other specified places as the place of occurrence of the external cause; I10 Essential (primary) hypertension; F32.A Depression, unspecified; M48.061 Spinal stenosis, lumbar region without neurogenic claudication; G30.9 Alzheimer's disease, unspecified; F02.80 Dementia in other diseases classified elsewhere, unspecified severity, without behavioral disturbance, psychotic disturbance, mood disturbance, and anxiety; Z66 Do not resuscitate; Z20.822 Contact with and (suspected) exposure to COVID-19
CPT/HCPCS: 0241U; 36415; 72128; 72131; 80053; 81001; 85025; 96374; 96376; 97110; 97140; 97162; 97165; 97530; 99285; A9270-GY; J2405; J3010